=== PATIENT | female | born 1980 | race Two or more races ===

== ENCOUNTER 2017-07-10 12:23 | Emergency (ER) | payer MEDICARE, OTHER ==
[~2017-07-10] VITALS: Ht 165.1 cm; Wt 75.3 kg
[2017-07-10] MEDS ORDERED: KEFLEX500 MG PO (14:44)
== END 2017-07-10 14:58 | disposition home or self-care (01) ==
LOC: ED 12:23
DX: L08.9 Local infection of the skin and subcutaneous tissue, unspecified (principal); I10 Essential (primary) hypertension; F17.200 Nicotine dependence, unspecified, uncomplicated; Z90.710 Acquired absence of both cervix and uterus; Z88.0 Allergy status to penicillin; Z88.8 Allergy status to other drugs, medicaments and biological substances
CPT/HCPCS: 73130; 99283

== ENCOUNTER 2017-12-24 08:55 | Day surgery (SDC) | payer MEDICARE, OTHER ==
[~2017-12-24] VITALS: Ht 165.1 cm; Wt 94.8 kg
[~2017-12-24 08:55] MED LIST: ABILIFY MAINTE400 M1 IM; AMLODIPINE BESYL5 MG PO; GLUCOPHAGE500 MG PO; KEFLEX500 MG PO; PRAZOSIN HCL1 MG PO
--- NOTE | 2017-12-24 11:16 | NUR ---
RN IN PT ROOM TO START IV ANTIBIOTIC. PT IV LINE WAS KINKED PROXIMALLY. IV LINE STRAIGHTENED OUT AND TAPED TO PT GOWN TO KEEP FROM KINKING AGAIN. APPROXIMATELY 3-5 MINUTES LATER, PT USES CALL LIGHT TO STATE THAT HER LEFT ARM WAS "VERY PAINFUL AND HARD TO THE TOUCH." IV FLUIDS SHUT OFF AND IV DC'D DUE TO INFILTRATION. LEFT ARM WRAPPED WITH COBAN AND WARM BLANKET PLACED TO HELP WITH REABSORPTION OF INFILTRATED FLUID. PT TOLEATES PROCEDURE WELL. MILLICENT MG RN IN PT ROOM TO START ANOTHER IV ON RIGHT UPPER ARM WITH USE OF ULTRASOUND.
--- NOTE | 2017-12-24 12:12 | NUR ---
12/24/17 1212 Yareli Rendon 1202 PT ARRIVED TO PACU, RESP EVEN AND UNLABORED ON 6L VIA MASK. ICE APPLIED TO RIGHT HAND AND ELEVATED ON PILLOWS. PT REACTIVE. 1208 PT WOKE UP AND WAS REORIENTED TO PACU. O2 REMOVED, O2 100%. PT DENIES NAUSEA AND PAIN.
--- NOTE | 2017-12-24 12:47 | NUR ---
1235: PATIENT BACK IN DAY SURGERY ROOM FROM PACU. DENIES PAIN. DENIES NAUSEA. C/O RIGHT THUMB BEING NUMB. CAP REFILL TO RIGHT THUMB WNL. RIGHT HAND DRESSING CDI. RIGHT HAND ELEVATED ON PILLOW. ICE PACK TO RIGHT HAND. IV SITE WNL. SCDs ON. GIVEN ICE WATER AND PUDDING. CALL LIGHT WITHIN REACH.
--- NOTE | 2017-12-24 13:27 | NUR ---
PT SITTING UPRIGHT IN BED ON CELLPHONE. PT REQUESTS MORE PUDDING. PT UP TO BR WITH RN ASSIST. PT VOIDS QS WITH NO PROBLEMS. DC CRITERIA MET, PT WOULD LIKE TO REST AT HOME. PT REQUESTS TO PUT OWN CLOTHING ON WHILE DC INSTUCTIONS ARE COMPLETED. CALL LIGHT AT PT LEFT SIDE.
[2017-12-24] MEDS ORDERED: ULTRAM50 MG PO (13:44)
--- NOTE | 2017-12-24 14:07 | NUR ---
[id number]: PT CALLS TAXI FOR RIDE HOME. DC INSTRUCTIONS GIVEN TO PT, PT VERBALIZES AN UNDERSTANDING OF DS INSTRUCTIONS AND HAS NO FURTHER QUESTIONS. PT DC'S VIA WC FROM DS RM 4.
--- NOTE | 2017-12-29 07:19 | OR ---
[facility] [address] [place], [place] [address] Signed DATE OF OPERATION: 12/24/2017 SURGEON: Delroy Izquierdo MD PREOPERATIVE DIAGNOSIS: Mass volar aspect, right thumb. POSTOPERATIVE DIAGNOSIS: Mass volar aspect, right thumb, suspect epithelial inclusion cyst. PROCEDURE: Excision of mass. ANESTHESIA: General. SPECIMENS: The mass was sent as a single specimen. COMPLICATIONS: There were no intraoperative complications. WHAT WAS DONE: The patient was taken to the operating room. After anesthesia was induced and the airway secured, right upper extremity was positioned, prepped and draped in a routine sterile fashion. The hand was exsanguinated with an Esmarch bandage and was less snugly about the wrist. We then made a small transverse incision just at the level of the proximal MCP flexion crease. Skin was divided sharply. Subcutaneous tissue was bluntly spread. The mass which appeared to be pearly white and multilobulated, was easily freed up from the surrounding tissue and was delivered out of the wound. Incision into the mass revealed a white chalky substance exuding from it consistent with an epithelial inclusion cyst. The wound was irrigated and closed in a single layer with 4-0 nylon and a sterile dressing applied. The patient was awakened and taken to the recovery room where she arrived in stable condition. Counts were correct and antibiotic protocols were followed. Delroy Izquierdo MD Electronically Signed By: DELROY IZQUIERDO MD 12/29/17 0719 PATIENT NAME: MILLER BROWER OPERATIVE REPORT DATE OF : 80 REPORT #: [id number] PHYSICIAN: DELROY IZQUIERDO MD PCP: MEME GARRETT REPORT IS CONFIDENTIAL AND NOT TO BE RELEASED WITHOUT AUTHORIZATION [address] [place] [address] Signed B/TRUONGL /[id number] Copies: ~ Electronically Signed By: DELROY IZQUIERDO MD 12/29/17 0719 PATIENT NAME: MILLER BROWER OPERATIVE REPORT DATE OF : 80 REPORT #: [id number] PHYSICIAN: DELROY IZQUIERDO MD PCP: MEME GARRETT REPORT IS CONFIDENTIAL AND NOT TO BE RELEASED WITHOUT AUTHORIZATION
== END 2017-12-24 14:00 | disposition home or self-care (01) ==
LOC: DS 08:55 → OPS 08:55 → DS 11:15 → OPS 11:15
PROVIDERS: Orthopaedic Surgery
PROC: 0JBJ0ZZ Excision of Right Hand Subcutaneous Tissue and Fascia, Open Approach (ICD-10-PCS; principal; 2017-12-24 11:15)
DX: L72.0 Epidermal cyst (principal); I10 Essential (primary) hypertension; F31.9 Bipolar disorder, unspecified; F17.210 Nicotine dependence, cigarettes, uncomplicated; Z79.899 Other long term (current) drug therapy; Z88.0 Allergy status to penicillin
CPT/HCPCS: 00400; 88304; J2250; J2405; J2704; J2765; J3010; J7120

== ENCOUNTER 2018-05-23 11:48 | Emergency (ER) | payer MEDICARE, OTHER ==
[~2018-05-23] VITALS: Ht 165.1 cm; Wt 94.8 kg
--- OUTSIDE RECORDS SUMMARY | ~2018-05-23 | XMS | Encounter Summary ---
Demographics + + + | Address | [address] | | | [place] [address] | + + + | Home Phone | | + + + | Preferred Language | Unknown | + + + | Marital Status | Single | + + + | Catholic Affiliation | NON | + + + | Race | White | + + + | Ethnic Group | Not or | + + + Author + + + | Author | [facility] | + + + | Organization | [facility] | + + + | Address | Unknown | + + + | Phone | Unavailable | + + + Support + + +---------+ + | Name | Relationship | Address | Phone | + + +---------+ + | ZEFERINO LOPEZ | ECON | Unknown | | + + +---------+ + Care Team Providers + +------+ + | Care Wood Car Builder Name | Role | Phone | + +------+ + | No Pcp Per Patient | PCP | Unavailable | + +------+ + Reason for Visit + + + | Reason | Comments | + + + | Surgery Questions | | + + + Encounter Details +--------+ + + + + | Date | Type | Department | Care Team | Description | +--------+ + + + + | 03/23/ | Telephone | [facility] | Tania Mack, | Surgery Questions | | 2018 | | [facility] | [address] | | | | | [address] | [address] | | | | | [address] | [place], [place] | | | | | [address] | [address] | | | | | [place], | [phone] | | | | | [place] [address] | | | | | | [phone] | | | +--------+ + + + + Social History + + + +--------+ + | Tobacco Use | Types | Packs/Day | Years | Date | | | | | Used | | + + + +--------+ + | Current Every Day | Cigarettes | 0.5 | 27 | Started: 1992 | | Smoker | | | | | + + + +--------+ + + +---+---+---+ | Smokeless Tobacco: | | | | | Never Used | | | | + +---+---+---+ + + +---------+ + | Alcohol Use | Drinks/We | oz/Week | Comments | | | ek | | | + + +---------+ + | No | | | | + + +---------+ + + + + | Sex Assigned at | Date Recorded | | | | + + + | Not on file | | + + + as of this encounter Plan of Treatment +--------+---------+ + + + | Date | Type | Specialty | Care Team | Description | +--------+---------+ + + + | 06/28/ | Office | Obstetrics & | Tania Mack, | | | 2018 | Visit | Gynecology | [address] [facility] | | | | | | [address] | | | | | | [place] | | | | | | [address] | | | | | | [phone] | | | | | | | | +--------+---------+ + + + as of this encounter Visit Diagnoses Not on filein this encounter"
--- OUTSIDE RECORDS SUMMARY | ~2018-05-23 | XMS | Encounter Summary ---
Demographics + + + | Address | [address] | | | [place] [address] | + + + | Home Phone | | + + + | Preferred Language | Unknown | + + + | Marital Status | Single | + + + | Jewish Affiliation | NON | + + + | Race | White | + + + | Ethnic Group | Not or | + + + Author + + + | Author | [facility] | + + + | Organization | [facility] | + + + | Address | Unknown | + + + | Phone | Unavailable | + + + Support + + +---------+ + | Name | Relationship | Address | Phone | + + +---------+ + | ZEFERINO LOPEZ | ECON | Unknown | | + + +---------+ + Care Team Providers + +------+ + | Care Mobile Home Mechanic Name | Role | Phone | + +------+ + | No Pcp Per Patient | PCP | Unavailable | + +------+ + Reason for Visit AUTH/CERT +--------+--------+ + + + + | Status | Reason | Specialty | Diagnoses / | Referred By | Referred To | | | | | Procedures | Contact | Contact | +--------+--------+ + + + + | | | | | | | +--------+--------+ + + + + Encounter Details +--------+ + + + + | Date | Type | Department | Care Team | Description | +--------+ + + + + | 03/26/ | Anesthesia | 4N INTRA OP | Haroon Taylor, | | | 2018 | Event | [facility] | [address] [facility] | | | | | Ambulatory Surgery | [facility] | | | | | Admitting Desk | [place], [place] | | | | | Located on the [facility] | [address] | | | | | floor, Room [facility] | [phone] | | | | | [address] [facility] | | | | | | [facility], | | | | | | [place] [address] | | | +--------+ + + + + Anesthesia Record + + + + + | Procedure Name | Responsible | Anesthesia Start | Anesthesia Stop Time | | | Anesthesiologist | Time | | + + + + + | POSTERIOR | Rajesh Rivers MD | 03/26/18 1046 | 03/26/18 1207 | | COLPORRHAPHY (N/A ) | | | | + + + + + +----+---+ + + | Da | T | Event | Comment | | te | i | | | | | m | | | | | e | | | +----+---+ + + | 09 | 0 | Eq Check | Anesthesia machine checked Equipment verified | | /0 | 9 | | | | 7/ | 3 | | | | 20 | 7 | | | | 18 | | | | +----+---+ + + | | 0 | Pt. Check | Prior to anesthesia start, pt. Identified, examined, chart | | | 9 | | reviewed, SYED held, anesthetic plan made or approved by | | | 4 | | attending anesthesiologist. NPO status confirmed as appropriate | | | 6 | | for procedure Preoperative evaluation: unchanged | +----+---+ + + | | 1 | Quick Note | Delayed start due to difficult IV, required IV therapy with | | | 0 | | ultrasound | | | 4 | | | | | 5 | | | +----+---+ + + | | 1 | An Start | | | | 0 | | | | | 4 | | | | | 6 | | | +----+---+ + + | | 1 | An Start | | | | 0 | Data | | | | 4 | | | | | 8 | | | +----+---+ + + | | 1 | Vitals | Monitors applied Vital signs checked Patient ready for anesthesia | | | 0 | Checked | | | | 5 | | | | | 0 | | | +----+---+ + + | | 1 | SGA | | | | 0 | | | | | 5 | | | | | 4 | | | +----+---+ + + | | 1 | Ready | | | | 0 | | | | | 5 | | | | | 6 | | | +----+---+ + + | | 1 | Abx | | | | 1 | Administere | | | | 0 | d | | | | 0 | | | +----+---+ + + | | 1 | Incision | | | | 1 | | | | | 0 | | | | | 7 | | | +----+---+ + + | | 1 | Surgery end | | | | 1 | | | | | 5 | | | | | 6 | | | +----+---+ + + | | 1 | SGA Removed | | | | 2 | | | | | 0 | | | | | 3 | | | +----+---+ + + | | 1 | an stop | | | | 2 | data | | | | 0 | | | | | 3 | | | +----+---+ + + | | 1 | PACU Rpt | | | | 2 | Given | | | | 0 | | | | | 7 | | | +----+---+ + + | | 1 | Anesthesia | | | | 2 | End | | | | 0 | | | | | 7 | | | +----+---+ + + +------+ | Meds | +------+ + +---------+ | Name | Total | + +---------+ | cefOXitin (MEFOXIN) injection 2 g | 2 g | + +---------+ | midazolam | 2 mg | + +---------+ | propofol | 200 mg | + +---------+ | lidocaine 2% | 80 mg | + +---------+ | dexamethasone | 6 mg | + +---------+ | fentaNYL | 150 mcg | + +---------+ | ondansetron | 4 mg | + +---------+ | ketorolac | 30 mg | + +---------+ | lactated Ringers IV | 400 mL | + +---------+ + + | Name | + + | O2 FR Avance (Total Liters) | + + | Air FR Avance (l/min) | + + | Insp Sevo | + + | Et Sevo | + + + + | No blood administrations on file. | + + +--------+ + + + | Type | Details | Placement | Removal | +--------+ + + + | Periph | 03/26/18; 1043; Right; | 03/26/18 1043 by | 03/26/18 1300 by | | eral | Antecubital; 22 g (22g 1.75in); | Alonzo Cohen RN | Keisha Hernandez RN | | IV | Lidocaine; Yes; Positive; | | | | | 03/26/18; 1300 | | | +--------+ + + + in this encounter Social History + + + +--------+ + | Tobacco Use | Types | Packs/Day | Years | Date | | | | | Used | | + + + +--------+ + | Current Every Day | Cigarettes | 0.5 | 27 | Started: 1993 | | Smoker | | | | [...] & | Tania Mack, | | | 2017 | Visit | Gynecology | [address] | | | | | | [address] | | | | | | [place], [place] | | | | | | [address] | | | | | | [phone] | | | | | | | | +--------+---------+ + + + as of this encounter Results NIK SANCHES (03/26/2018 11:05 AM) + + + | Narrative | Performed At | + + + | Haroon Taylor MD 03/26/2018 11:06 AM Procedure Reason for | | | Intubation: For surgical procedure, Location Performed: [place] , | | | Patient was preoxygenated Mask Ventilation Grade 1 - Ventilated by | | | mask ETT SGA Atraumatic Placement: Yes LMA Type: Classic | | | LMA Size: 4LMA Size: 4 LMA positive for Etco2 Breath Sounds | | | Auscultated: Bilateral and equal Narrative Attending physically | | | present Performed by Resident | | + + + in this encounter Visit Diagnoses Not on filein this encounter Administered Medications + +--------+ +------+------+------+ | Medication Order | MAR | Action | Dose | Rate | Site | | | Action | Date | | | | + +--------+ +------+------+------+ | cefOXitin (MEFOXIN) injection 2 | Given | 03/26/2018 | 2 g | | | | g 2 g, intravenous, | | 11:00 | | | | | PREPROCEDURE ONCE, 1 dose, | | PDT | | | | | Starting Thu03/26/18 at 0900, | | | | | | | Until Thu03/26/18 at 1100 | | | | | | + +--------+ +------+------+------+ +---+---+ | | | +---+---+ + +-------+ +------+---+---+ | dexamethasone (DECADRON) | Given | 03/26/2018 | 6 mg | | | | injection INTRAPROCEDURE PRN, | | 10:59 | | | | | Starting Thu03/26/18 at 1059, | | PDT | | | | | Until Thu03/26/18 at 1203 | | | | | | + +-------+ +------+---+---+ +---+---+ | | | +---+---+ + +-------+ +--------+---+---+ | fentaNYL (SUBLIMAZE) injection | Given | 03/26/2018 | 25 mcg | | | | INTRAPROCEDURE PRN, Starting Fri | | 11:42 | | | | | 03/26/18 at 1105, Until 03/26/18 | | PDT | | | | | at 1203 | | | | | | + +-------+ +--------+---+---+ +-------+ +--------+---+---+ | Given | 03/26/2018 | 25 mcg | | | | | 11:54 | | | | | | PDT | | | | +-------+ +--------+---+---+ | Given | 03/26/2018 | 25 mcg | | | | | 11:55 | | | | | | PDT | | | | +-------+ +--------+---+---+ +---+---+ | | | +---+---+ + +-------+ +-------+---+---+ | ketorolac (TORADOL) injection | Given | 03/26/2018 | 30 mg | | | | INTRAPROCEDURE PRN, Starting Fri | | 11:49 | | | | | 03/26/18 at 1149, Until Thu03/26/18 | | PDT | | | | | at 1203 | | | | | | + +-------+ +-------+---+---+ +---+---+ | | | +---+---+ + +---------+ + + +---+ | lactated Ringers IV 10 mL/hr, | New Bag | 03/26/2018 | 10 mL/hr | 10 mL/hr | | | intravenous, PROCEDURE | | 09:32 | | | | | CONTINUOUS, Starting Thu03/26/18 | | PDT | | | | | at 0915, Until Thu03/26/18 at 1309 | | | | | | + +---------+ + + +---+ + + +---+---+---+ | New Bag | 03/26/2018 | | | | | | 10:46 | | | | | | PDT | | | | + + +---+---+---+ | given by anesthesiology | 03/26/2018 | | | | | | 11:57 | | | | | | PDT | | | | + + +---+---+---+ +---+---+ | | | +---+---+ + +-------+ +-------+---+---+ | lidocaine (XYLOCAINE MPF) 2 % | Given | 03/26/2018 | 80 mg | | | | (20 mg/mL) injection | | 10:53 | | | | | INTRAPROCEDURE PRN, Starting Fri | | PDT | | | | | 03/26/18 at 1053, Until 03/26/18 | | | | | | | at 1203 | | | | | | + +-------+ +-------+---+---+ +---+---+ | | | +---+---+ + +-------+ +------+---+---+ | midazolam (PF) (VERSED) | Given | 03/26/2018 | 2 mg | | | | injection INTRAPROCEDURE PRN, | | 10:46 | | | | | Starting 03/26/18 at 1046, | | PDT | | | | | Until 03/26/18 at 1203 | | | | | | + +-------+ +------+---+---+ +---+---+ | | | +---+---+ + +-------+ +------+---+---+ | ondansetron (ZOFRAN) injection | Given | 03/26/2018 | 4 mg | | | | INTRAPROCEDURE PRN, Starting Fri | | 11:44 | | | | | 03/26/18 at 1144, Until 03/26/18 | | PDT | | | | | at 1203 | | | | | | + +-------+ +------+---+---+ +---+---+ | | | +---+---+ + +-------+ +--------+---+---+ | propofol (DIPRIVAN) injection | Given | 03/26/2018 | 200 mg | | | | INTRAPROCEDURE PRN, Starting Fri | | 10:53 | | | | | 03/26/18 at 1053, Until 03/26/18 | | PDT | | | | | at 1203 | | | | | | + +-------+ +--------+---+---+ +---+---+ | | | +---+---+ in this encounter"
--- OUTSIDE RECORDS SUMMARY | ~2018-05-23 | XMS | Encounter Summary ---
Demographics + + + | Address | [address] | | | [place] [address] | + + + | Home Phone | | + + + | Preferred Language | Unknown | + + + | Marital Status | Single | + + + | Tenriism Affiliation | NON | + + + | Race | White | + + + | Ethnic Group | Not or | + + + Author + + + | Author | [facility] | + + + | Organization | [facility] | + + + | Address | Unknown | + + + | Phone | Unavailable | + + + Support + + +---------+ + | Name | Relationship | Address | Phone | + + +---------+ + | ZEFERINO LOPEZ | ECON | Unknown | | + + +---------+ + Care Team Providers + +------+ + | Care Hyperbaric Tech Name | Role | Phone | + +------+ + | No Pcp Per Patient | PCP | Unavailable | + +------+ + Encounter Details +--------+ + + + + | Date | Type | Department | Care Team | Description | +--------+ + + + + | 03/26/ | Procedure | 4N INTRA OP | | | | 2018 | Pass | [facility] | | | | | | Ambulatory Surgery | | | | | | Admitting Desk | | | | | | Located on the 4th | | | | | | floor, Room [facility] | | | | | | [address] [place] [address] [address] | | | | | | [facility], | | | | | | [place] [address] | | | +--------+ + + + [...] [address] | | | | | | [place], [place] | | | | | | [address] | | | | | | [phone] | | | | | | | | +--------+---------+ + + + as of this encounter Visit Diagnoses Not on filein this encounter"
--- OUTSIDE RECORDS SUMMARY | ~2018-05-23 | XMS | Encounter Summary ---
Demographics + + + | Address | [address] | | | [place] [address] | + + + | Home Phone | | + + + | Preferred Language | Unknown | + + + | Marital Status | Single | + + + | Quaker Affiliation | NON | + + + | Race | White | + + + | Ethnic Group | Not or | + + + Author + + + | Author | [facility] | + + + | Organization | [facility] | + + + | Address | Unknown | + + + | Phone | Unavailable | + + + Support + + +---------+ + | Name | Relationship | Address | Phone | + + +---------+ + | ZEFERINO LOPEZ | ECON | Unknown | | + + +---------+ + Care Team Providers + +------+ + | Care Drilling Rig Operator Name | Role | Phone | + +------+ + | No Pcp Per Patient | PCP | Unavailable | + +------+ + Reason for Visit + + + | Reason | Comments | + + + | Postoperative visit | | + + + Encounter Details +--------+---------+ + + + | Date | Type | Department | Care Team | Description | +--------+---------+ + + + | 04/12/ | Office | [facility] | Tania Mack, | Recurrent UTI | | 2018 | Visit | [facility] | MD [address]jah [address] | (Primary Dx) | | | | [address] | [address] | | | | | [address] | [place], [place] | | | | | [address] | [address] | | | | | [address], | [phone] | | | | | [place] [address] | | | | | | [phone] | | | +--------+---------+ + + + Social History + + [...] | | | + +---+---+---+ + + | Comments: down to 1/2 pack daily | + + + + +---------+ + | Alcohol Use [...] + + + as of this encounter Last Filed Vital Signs + + + + | Vital Sign | Reading | Time Taken | + + + + | Blood Pressure | 116/84 | 04/12/2018 10:54 AM PDT | + + + + | Pulse | 91 | 04/12/2018 10:54 AM PDT | + + + + | Temperature | 36.8 C (98.2 F) | 04/12/2018 10:54 AM PDT | + + + + | Respiratory Rate | - | - | + + + + | Oxygen Saturation | 99% | 04/12/2018 10:54 AM PDT | + + + + | Inhaled Oxygen | - | - | | Concentration | | | + + + + | Weight | 98.4 kg (217 lb) | 04/12/2018 10:54 AM PDT | + + + + | Height | - | - | + + + + | Body Mass Index | 35.02 | 04/12/2018 10:54 AM PDT | + + + + in this encounter Instructions Patient Instructions - Betty Vilchis MD - 04/12/2018 11:00 AM PDTThings are healing up well. Keep doing good work! Continue to rest the vaginal area for the next couple months. Take Miralax as needed to av oid constipation.in this encounter Progress Notes Valerie Arriaga MA - 04/12/2018 11:00 AM PDTPOC 10-dip ordered in error on patient's chart . Please disregard results, wrong patient. Betty Vilchis MD - 04/12/2018 11:00 AM PDTUrogynecology Postop Visit 04/12/2018 HPI: Ms. Penny is a 38 y.o. s/p posterior repair on 03/26 returning for follow-up. Continues to feel pressure in the pelvis but denies any feeling of vaginal bulge. Having B Ms every other day without need to strain. Denies vaginal bleeding. Has minimal pain. Did feel a suture pop last week and is worried about this. The past medical history, surgical history, family history, social history, and current med ications updated in EPIC. PHYSICAL EXAM BP 116/84 | Pulse 91 | Temp 36.8 C (98.2 F) | Wt 98.4 kg (217 lb) | SpO2 99% | BMI 35.0 2 kg/(m^2) GENERAL: Healthy Appearing, No acute distress NECK: No thyromegaly RESPIRATORY: Breathing without difficulty CARDIOVASCULAR: No pedal edema SKIN: Warm and dry No vulvar irritation or lesions noted GENERAL PELVIC EXAM EXTERNAL GENITALIA: Normal External Genitalia VAGINA normal diameter normal healing of posterior vaginal incision ASSESSMENT 2 weeks s/p posterior repair, healing appropriately. RECOMMENDATIONS - Discussed activity restrictions- recommended continued pelvic rest - Continue Miralax prn - Return in 8 weeks Pt seen with Dr. Mack, who agrees with the assessment and plan. Elizabeth Vilchis MD Female Pelvic Medicine and Reconstructive Surgery Fellow Tania Mack MD - 04/12/2018 11:00 AM PDTI have seen and examined Ms Penny and agree with Dr Vilchis's note and assessment. Postop doing well.in this encounter Plan of Treatment +--------+---------+ + + + | Date | Type | Specialty | Care Team | Description | +--------+---------+ + + + | 06/28/ | Office | Obstetrics & | Tania Mack, | | | 2017 | Visit | Gynecology | [address] [facility] | | | | | | [facility] | | | | | | [place], [place] | | | | | | [address] | | | | | | [phone] | | | | | | | | +--------+---------+ + + + as of this encounter Procedures + +--------+ + + + | Procedure Name | Priori | Date/Time | Associated Diagnosis | Comments | | | ty | | | | + +--------+ + + + | UA DIPSTICK 10 DIP | Routin | 04/12/2018 | Recurrent UTI | Results for this | | W/O MICRO | e | 11:38 AM | | procedure are in the | | (AUTOMATED), POC | | PDT | | results section. | + +--------+ + + + in this encounter Results UA 10 DIP, POC (04/12/2018 11:38 AM) + + + + + | Component | Value | Ref Range | Performed At | + + + + + | COLOR (UA DIP), POC | Comment: Previously | | [facility] | | | reported as: Zenaida | | [facility] | | | | | CARE TESTS | + + + + + | APPEARANCE (UA DIP), | Comment: Previously | | [facility] | | POC | reported as: Cloudy | | [facility] | | | | | CARE TESTS | + + + + + | LEUKOCYTES (UA DIP), | (A)Comment: Previously | Negative | [facility] | | POC | reported as: Trace | | [facility] | | | | | CARE TESTS | + + + + + | NITRITES (UA DIP), | (A)Comment: Previously | Negative | [facility] | | POC | reported as: Positive | | [facility] POINT OF | | | | | CARE TESTS | + + + + + | UROBILINOGEN (UA | Comment: Previously | 0.2 - 1.0 E.U./dL | [facility] | | DIP), POC | reported as: 0.2 | | [facility] | | | | | CARE TESTS | + + + + + | PROTEIN (UA DIP), | Comment: Previously | Neg - Trace mg/dL | [facility] | | POC | reported as: Trace | | [facility] | | | | | CARE TESTS | + + + + + | PH (UA DIP), POC | Comment: Previously | 5.0 - 8.0 | [facility] | | | reported as: 5.5 | | [facility] POINT OF | | | | | CARE TESTS | + + + + + | BLOOD (UA DIP), POC | Comment: Previously | Negative | [facility] | | | reported as: Negative | | [facility] POINT OF | | | | | CARE TESTS | + + + + + | SPECIFIC GRAVITY (UA | Comment: Previously | 1.005 - 1.030 | [facility] | | DIP), POC | reported as: 1.025 | | [facility]INT OF | | | | | CARE TESTS | + + + + + | KETONES (UA DIP), | Comment: Previously | Negative mg/dL | [facility] | | POC | reported as: Negative | | [facility] OF | | | | | CARE TESTS | + + + + + | BILIRUBIN (UA DIP), | Comment: Previously | Negative | [facility] | | POC | reported as: Negative | | [facility] PO[facility] OF | | | | | CARE TESTS | + + + + + | GLUCOSE (UA DIP), | Comment: Previously | Negative - Trace | [facility] | | POC | reported as: Negative | mg/dL | [facility] OF | | | | | CARE TESTS | + + + + + + + | Specimen | + + | Urine - Urine | + + + + + | Narrative | Performed At | + + + | Resulted to wrong patient per MA. curtis Allen | [facility] | | | [facility], | | | POINT OF CARE | | | TESTS | + + + + + + + + | Performing | Address | City/State/Zipcode | Phone Number | | Organization | | | | + + + + + | [facility] | [address] | [place], [place] | | | [facility] | [facility] | [address] | | | TESTS | | | | + + + + + in this encounter Visit Diagnoses + + | Diagnosis | + + | Recurrent UTI - Primary | + + | Urinary tract infection, site not specified | + +"
--- OUTSIDE RECORDS SUMMARY | ~2018-05-23 | XMS | Encounter Summary ---
Demographics + + + | Address | [address] | | | [place] [address] | + + + | Home Phone | | + + + | Preferred Language | Unknown | + + + | Marital Status | Single | + + + | Sikh Affiliation | NON | + + + [...] Team Providers + +------+ + | Care Codifier Name | Role | Phone | + [...] | Event | Wilmer Grey | [address] [facility] | | | | | Ambulatory Surgery | [facility] | | | | | Admitting Desk | [place], [place] | | | | | Located on the [facility] | [address] | | | | | floor, Room [facility] | [phone] | | | | | [address] [facility] [address] | | | | | | [place], | | | | | | [place] [address] | | | +--------+ + + + [...] [address] | | | | | | [place], [place] | | | | | | [address] | | | | | | [phone] | | | | | | | [...]
--- OUTSIDE RECORDS SUMMARY | ~2018-05-23 | XMS | Clinical Summary ---
Demographics + + + | Address | [address] | | | [place] [address] | + + + | Home Phone | | + + + | Preferred Language | Unknown | + + + | Marital Status | | + + + | Jainism Affiliation | Unknown | + + + | Race | Unknown | + + + | Ethnic Group | Unknown | + + + Author + + + | Author | [email or web address] | + + + | Organization | [facility] | + + + | Address | Unknown | + + + | Phone | Unavailable | + + + Support + + +---------+ + | Name | Relationship | Address | Phone | + + +---------+ + | Alexandra Guerrero | ECON | Unknown | | + + +---------+ + Care Team Providers + +------+ + | Care Batterboard Setter Name | Role | Phone | + +------+ + | Mahesh Vega | PP | | + +------+ + Allergies + + + + + + | Active Allergy | Reactions | Severity | Noted | Comments | | | | | Date | | + + + + + + | Paliperidone | Hives | High | 07/27/19 | | | | | | 18 | | + + + + + + | Penicillins | Other (See Comments) | Medium | 06/09/20 | | | | | | 05 | | + + + + + + Current Medications + + +--------+---------+------+------+-------+ | Prescription | Sig. | Disp. | Refills | Star | End | Statu | | | | | | t | Date | s | | | | | | Date | | | + + +--------+---------+------+------+-------+ | amLODIPine | Take by mouth. | | | 04/2 | 04/2 | Activ | | (NORVASC) 5 MG | | | | 5/20 | 5/20 | e | | tablet | | | | 18 | 19 | | + + +--------+---------+------+------+-------+ | ARIPiprazole ER | Inject into the | | | 04/2 | | Activ | | 400 MG PRSY | muscle. | | | 5/20 | | e | | | | | | 18 | | | + + +--------+---------+------+------+-------+ | nitrofurantoin | Take by mouth. | | | 04/3 | | Activ | | (MACRODANTIN) 100 MG | | | | 0/20 | | e | | capsuleIndications: | | | | 18 | | | | Uncomplicated | | | | | | | | Urinary Tract | | | | | | | | Infection | | | | | | | + + +--------+---------+------+------+-------+ | metFORMIN | Take 500 mg by mouth | | | | | Activ | | (GLUMETZA) 500 MG | 2 (two) times | | | | | e | | (MOD) 24 hr tablet | daily. | | | | | | + + +--------+---------+------+------+-------+ | prazosin | Take 1 mg by mouth. | | | | | Activ | | (MINIPRESS) 1 MG | | | | | | e | | capsule | | | | | | | + + +--------+---------+------+------+-------+ | amLODIPine | Take 10 mg by mouth. | | | 12/18 | 12/18 | Activ | | (NORVASC) 10 MG | | | | 09/08 | 09/08 | e | | tablet | | | | 18 | 19 | | + + +--------+---------+------+------+-------+ | metFORMIN | Take 1,000 mg by | | | | | Activ | | (GLUCOPHAGE) 1000 MG | mouth. | | | | | e | | tablet | | | | | | | + + +--------+---------+------+------+-------+ | nitrofurantoin | Take 100 mg by | | | | | Activ | | (MACRODANTIN) 100 MG | mouth. | | | | | e | | capsuleIndications: | | | | | | | | Uncomplicated | | | | | | | | Urinary Tract | | | | | | | | Infection | | | | | | | + + +--------+---------+------+------+-------+ | clindamycin | Apply qhs to face | 60 g | 11 | 06/1 | | Activ | | (CLINDAGEL) 1 % | | | | 2/20 | | e | | gelIndications: Acne | | | | 18 | | | | vulgaris | | | | | | | + + +--------+---------+------+------+-------+ + + +-------+ +------+------+-------+ | Hospital, Clinic, or | Ordered | Route | Frequency | Star | End | Statu | | Other Facility | Dose | | | t | Date | s | | Administered | | | | Date | | | | Medication | | | | | | | + + +-------+ +------+------+-------+ | | 3 mL | ID | Once | 12/18 | 12/18 | Activ | | lidocaine-EPINEPHrin | | | | / | 10/06 | e | | e 1 %-[id number] | | | | 18 | 38 | | | injection 3 | | | | | | | | mLIndications: | | | | | | | | Neoplasm of | | | | | | | | uncertain behavior | | | | | | | | of skin | | | | | | | + + +-------+ +------+------+-------+ Active Problems + + + | Problem | Noted Date | + + + | Essential hypertension | 12/29/2017 | + + + | Cigarette smoker | 12/29/2017 | + + + | H/O excision of epidermal inclusion cyst | 12/25/2017 | + + + + + | Overview: Overview: | | Right thumb. 12/2017 | + + + + + | Rectocele | 11/18/2017 | + + + | Constipation | 07/30/2017 | + + + | Hx of drug abuse | 07/30/2017 | + + + + + | Overview: Overview: | | Formerly used meth--last 2010 | + + + + + | Schizophrenia (HCC) | 07/27/2017 | + + + | Dyspareunia | 10/10/2005 | + + + Social History + +-------+ +--------+------+ | Tobacco Use | Types | Packs/Day | Years | Date | | | | | Used | | + +-------+ +--------+------+ | Current Every Day | | | | | | Smoker | | | | | + +-------+ +--------+------+ + +---+---+---+ | Smokeless Tobacco: | | | | | Never Used | | | | + +---+---+---+ + + + | Sex Assigned at | Date Recorded | | | | + + + | Not on file | | + + + Last Filed Vital Signs + + + + | Vital Sign | Reading | Time Taken | + + + + | Blood Pressure | - | - | + + + + | Pulse | - | - | + + + + | Temperature | - | - | + + + + | Respiratory Rate | - | - | + + + + | Oxygen Saturation | - | - | + + + + | Inhaled Oxygen | - | - | | Concentration | | | + + + + | Weight | 90.7 kg (200 lb) | 12/02/2017 9:57 AM PDT | + + + + | Height | 167.6 cm (5' 6") | 12/02/2017 9:57 AM PDT | + + + + | Body Mass Index | 32.28 | 12/02/2017 9:57 AM PDT | + + + + Plan of Treatment + + + + + | Health Maintenance | Due Date | Last Done | Comments | + + + + + | Vaccine: | | | | | Dtap/Tdap/Td (1 - | 9 | | | | Tdap) | | | | + + + + + | Vaccine: | | | | | Pneumococcal 19-64 | 9 | | | | (PPSV23 only) Medium | | | | | Risk (1 of 1 - | | | | | PPSV23) | | | | + + + + + | Cervical Cancer | | | | | Screening (Pap) | 0 | | | + + + + + | Vaccine: Influenza | | | | | (#1) | 8 | | | + + + + + Results Not on filefrom Last 3 Months Insurance + +--------+ +------+-------+ + | Payer | Benefi | Subscriber | Type | Phone | Address | | | t Plan | ID | | | | | | / | | | | | | | Group | | | | | + +--------+ +------+-------+ + | MEDICARE | MEDICA | [id number] | | | [address] | | | [place] | | | | [place] [address] | | | IP-OP | | | | | + +--------+ +------+-------+ + | MEDICAID | [place] | [id number] | | | [address] | | | [place] | | | | [place] | | | [place] | | | | [address] | | | [address] | | | | | + +--------+ +------+-------+ + + +--------+ +--------+ + + | Guarantor Name | Accoun | Relation to | Date | Phone | Billing Address | | | t Type | Patient | of | | | | | | | | | | + +--------+ +--------+ + + | MILLER QUACH | Person | Self [birth year] Home: | [address] | | [address] | | 1980 | [phone] [place] [address] | | | [address] | | | [address] | | + +--------+ +--------+ + +
--- OUTSIDE RECORDS SUMMARY | ~2018-05-23 | XMS | Encounter Summary ---
Demographics + + + | Address | [address] | | | [place] [address] | + + + | Home Phone | | + + + | Preferred Language | Unknown | + + + | Marital Status | Single | + + + | Buddhist Affiliation | NON | + + + | Race | White | + + + | Ethnic Group | Not or | + + + Author + + + | Author | [facility] | + + + | Organization | [facility] | + + + | Address | Unknown | + + + | Phone | Unavailable | + + + Support + + +---------+ + | Name | Relationship | Address | Phone | + + +---------+ + | ZEFERINO LOPEZ | ECON | Unknown | | + + +---------+ + Care Team Providers + +------+ + | Care Standpipe Tender Name | Role | Phone | + [...] +--------+--------+ + + + + Encounter Details +--------+---------+ + + + | Date | Type | Department | Care Team | Description | +--------+---------+ + + + | 03/26/ | Surgery | 4N INTRA OP | Tania Mack, | REPAIR OF RECTOCELE | | 2018 | | Wilmer Grey | [address] | | | | | Ambulatory Surgery | [facility] | | | | | Admitting Desk | [place], [place] | | | | | Located on the [facility] | [address] | | | | | floor, Room [facility] | [phone] | | | | | [address] [facility] | | | | | | [facility], | | | | | | [place] [address] | | | +--------+---------+ + + + [...] + + + | Blood Pressure | 121/79 | 03/26/2018 1:30 PM PDT | + + + + | Pulse | 72 | 03/26/2018 1:30 PM PDT | + + + + | Temperature | 36.7 C (98.1 F) | 03/26/2018 1:40 PM PDT | + + + + | Respiratory Rate | 16 | 03/26/2018 1:30 PM PDT | + + + + | Oxygen Saturation | 99% | 03/26/2018 1:40 PM PDT | + + + + | Inhaled Oxygen | - | - | | Concentration | | | + + + + | Weight | 96.2 kg (212 lb) | 03/26/2018 9:07 AM PDT | + + + + | Height | 167.6 cm (5' 6") | 03/26/2018 9:07 AM PDT | + + + + | Body Mass Index | 34.22 | 03/26/2018 9:07 AM PDT | + + + + in this encounter Discharge Instructions Christine Mccollum MD - 03/25/2018Post-surgical Discharge Instructions: Twelve Week Limita tions for Major Reconstructive Surgery You have undergone an extensive reconstructive pelvic surgery and it is now your turn to pl ay a pivotal role in the success of your surgical treatment. We know that it will take appro ximately twelve weeks for the tissues that have been operated on to heal to 80% of their fin al strength. It may take up to six months to achieve 90% strength and full wound remodeling continues for up to two years. Based on this, we recommend that our patients restrict their activities for twelve weeks following surgery. By following these recommendations we would e xpect to get good healing of the surgical site and achieve a good, long-lasting repair of yo ur problem. Your Recovery You can expect to feel better and stronger each day, although you may need pain medicine fo r a week or two. You may get tired easily or have less energy than usual. This may last for several weeks after surgery. Some people may notice a slight depression after surgery. This typically will resolve on its own, but please notify us if it does not. You will probably no carlos that your belly is swollen and puffy. This is common. The swelling will take several we eks to go down. In addition, if you notice excess bleeding, drainage, or redness you should contact the office. If you have any questions at any time, please do not hesitate to contact us. Routine questions and prescription refills can be handled best during regular office ho urs at the office nurse telephone number above. For urgent or emergent issues, one of our ur ogynecologic team is marketing production manager at all times through the page dip unit operator. Assuming that you are recovering fine at home, we would like to see you back in the office at two weeks and t welve weeks after your surgery, or more often if necessary. It is important to avoid lifting while you are recovering so that you can heal. This care sheet gives you specific informati on about what to expect at home and how to care for yourself following surgery. Following th e steps below to get better as quickly as possible. Activity - Rest when you feel tired. Getting enough sleep will help you recover. - Try to walk each day. Start by walking a little more than you did the day before. Bit by bit, increase the amount you walk. Walking boosts blood flow and helps prevent pneumonia and constipation. - You may shower. Pat any incisions dry. Do not take a bath for the first 2 weeks, or until we tell you it is okay. - Nothing in the vagina for approximately 2 to 3 months post-operatively. We will tell you when you can have sex again. Unless we have informed you otherwise, you may remove yourself form the no-lifting and nothing in the vagina restriction a week or two prior to coming in f or your three month visit. - You can drive again when you are no longer taking narcotic pain pills and can feel confid ent in an emergency (sudden stopping for example). Major risk factors for tearing down the surgical repair in the immediate post-operative per iod are constipation and heavy lifting. Any activity that increases the pressure within your abdominal cavity may do this. Therefore, we recommend: - You probably need to take 6-12 weeks off from work. It depends on the type of work you do and how you feel. - Avoid lifting anything that would make you strain. Do not lift anything heavier than 5-8 pounds for twelve weeks. This may include a child, heavy grocery bags and milk containers, a heavy briefcase or backpack, cat litter or dog food bags, or a vacuum barrel loader and cleaner. - Limit your exercise activities such as jogging, aerobics, swimming and biking - Resume Kegel exercises immediately following surgery Diet - You can eat your normal diet. If your stomach is upset, try bland, low-fat foods like carlos enrique in rice, boiled chicken, toast, and yogurt. - Drink plenty of fluids (unless your doctor tells you otherwise). - You may notice that your bowel movements are not regular right after your surgery. This i s common. Try to avoid constipation and straining with bowel movements. Constipation - Take stool softeners as prescribed for twelve weeks post-operatively - It is important to remember that Colace will NOT help move your bowels. It will only help to keep your stool soft. - Drink plenty of fluids, enough so that your urine is light yellow or clear like water. If you have kidney, heart, or liver disease and have to limit fluids, talk to your doctor befo re you increase the amount of fluids your drink. - Include high-fiber foods, such as fruits, vegetables, beans, and whole grains, in your di et each day. - Take a fiber supplement, such as Citrucel or Metamucil, every day. Start with a small dos e and very slowly increase the dose. - If you have not had a bowel movement by 3 days following surgery, please take a dose of e ither Milk of Magnesia or Miralax, available over the counter at your drugstore. We may julio cesar mmend that you take one or both of these laxatives every day starting when you get home. Medicines - Take pain medicines exactly as directed. - Resume all of your prior medication once you are at home, unless otherwise directed by us or your other physician(s). - If you need refills on this medication after you are home, please call the office during regular business hours. - If you are not taking a prescription pain medicine, ask us if you can take an over-the-co unter medicine. - Do not take your pain medication with alcoholic drink. - Do not drive while taking narcotic pain medication - If we prescribed antibiotics, take them as directed. Do not stop taking them just because you feel better. You need to take the full course of antibiotics. - If you think your pain medicine is making you sick to your stomach: 1) Take your medicine after meals (unless we told you not to); 2) Ask us for a different pain medicine. Example of how to alternate medications: 8AM: Oxycodone 1-2 tablets (try to take with food) 12PM: Tylenol (325-600mg) or Ibuprofen (400-600mg) 4PM: Oxycodone 1-2 tablets 8PM: Tylenol or Ibuprofen Cavazos points about pain medication: DO NOT take Tylenol more often than every 4 hours. Odin giraldo Tylenol dose over 24 hours is 4000mg. 4 Nausea Patients often experience nausea after surgery. This is often related to anesthesia and slo w return of bowel function. Sometimes slow sips of fluids/saltine crackers/ small meals rath er than large ones will help relieve nausea. If you cannot keep anything down and feel you n eed anti-nausea medication please call our clinic or provider on-call. Incision Care - If you have strips of tape on the incision leave the tape on for a week or until it falls off. - Wash the area daily with warm, soapy water, and pat it dry. Don t use hydrogen peroxide or alcohol which can slow healing. You may cover the area with a gauze bandage if it weeps or rubs against clothing. - Keep the area clean and dry. - You may shower after surgery, please do not take tub baths or go swimming until we have g iven you permission to resume these activities. When should you call for help? Call 911 anytime you think you may need emergency care. For example: - You passed out (lost consciousness) - You have sudden chest pain and shortness of breath. - You have severe pain in your belly. Call us now or seek immediate medical care if: - You have heavy bright red vaginal bleeding that soaks one or more pad in an hour. - You have very foul-smelling discharge from your vagina - You cannot keep any fluids down. - You have signs of infection, such as: drainage or redness of the incisions. If you are going home with a catheter in your bladder, you will receive special instruction s about how to manage it. We hope that these instructions will be useful to you. Please ask if there are any question s you have that are not covered by these instructions. Your successful surgical procedure an d recovery is a joint effort. We will need your help to see that you recuperate and heal wel l. in this encounter Medications at Time of Discharge + + +---------+---------+ + + | Medication | Sig. | Disp. | Refills | Start | End Date | | | | | | Date | | + + +---------+---------+ + + | acetaminophen | Take 2 tablets by | 50 | 0 | 03/26/20 | | | (TYLENOL) 325 mg | mouth every six | tablet | | 18 | | | oral tablet | hours as needed. | | | | | + + +---------+---------+ + + | amLODIPine 10 mg | Take 10 mg by mouth | | | 12/30/19 | | | oral tablet | once daily at | | | 18 | 9 | | | bedtime. | | | | | + + +---------+---------+ + + | Docusate Sodium | Take 1 tablet by | 180 | 0 | 03/26/20 | | | 100 mg oral tablet | mouth two times | tablet | | 18 | 8 | | | daily. | | | | | + + +---------+---------+ + + | ibuprofen 600 mg | Take 1 tablet by | 30 | 0 | 03/26/20 | | | oral tablet | mouth every six | tablet | | 18 | | | | hours as needed. | | | | | + + +---------+---------+ + + | metFORMIN 1,000 mg | Take 1,000 mg by | | | | | | oral tablet | mouth two times | | | | | | | daily. | | | | | + + +---------+---------+ + + | nicotine 14 mg/24 | Apply 1 patch to | | | | | | hr transdermal patch | skin once daily. | | | | | | 24 hour | | | | | | + + +---------+---------+ + + | nitrofurantoin | Take 1 capsule by | 60 | 3 | 11/17/19 | | | macro crystals | mouth once daily. | capsule | | 18 | | | (MACRODANTIN) 100 mg | Indications: UTI | | | | | | oral | prophylaxis | | | | | | capsuleIndications: | | | | | | | UTI prophylaxis | | | | | | + + +---------+---------+ + + | omeprazole 20 mg | Take 20 mg by mouth | | | | | | oral capsule,delayed | once daily. | | | | | | release(DR/EC) | | | | | | + + +---------+---------+ + + | oxyCODONE | Take 1 tablet by | 10 | 0 | 03/26/20 | | | (immediate release) | mouth every six | tablet | | 18 | | | 5 mg oral tablet | hours as needed. | | | | | + + +---------+---------+ + + | polyethylene | Mix 17 g in liquid | 765 g | 1 | 03/26/20 | | | glycol (MIRALAX) 17 | and drink once | | | 18 | | | gram/dose oral | daily. | | | | | | powder | | | | | | + + +---------+---------+ + + as of this encounter Plan of Treatment +--------+---------+ + + + | Date | Type | Specialty | Care Team | Description | +--------+---------+ + + + | 12/10/ | Office | Obstetrics & | Tania Mack, | | | 2018 | Visit | Gynecology | [address] | | | | | | [address] | | | | | | [place], [place] | | | | | | [address] | | | | | | [phone] | | | | | | | | +--------+---------+ + + + as of this encounter Procedures + +--------+ + + + | Procedure Name | Priori | Date/Time | Associated Diagnosis | Comments | | | ty | | | | + +--------+ + + + | PROCEDURE NOTE | Routin | 03/26/2018 | | Results for this | | | e | 12:27 PM | | procedure are in the | | | | PDT | | results section. | + +--------+ + + + | POSTERIOR | Electi | 03/26/2018 | Rectocele | | | COLPORRHAPHY | ve | 10:00 AM | | | | | Surgic | PDT | | | | | al | | | | + +--------+ + + + | INTRAPROCEDURE | Routin | 03/26/2018 | | Results for this | | IMAGING | e | 9:00 AM | | procedure are in the | | | | PDT | | results section. | + +--------+ + + + | CARDIOLOGY | | 03/26/2018 | | Results for this | | | | 12:00 AM | | procedure are in the | | | | PDT | | results section. | + +--------+ + + + in this encounter Results PROCEDURE NOTE (03/26/2018 12:27 PM) + + + | Narrative | Performed At | + + + | Christine Mccollum MD 03/26/2018 12:27 PM OPERATIVE NOTE | | | Procedure Date: 03/26/2018 Attending Physician: David Mack MD | | | Assistants: Christine Mccollum MD, R3 Preoperative Diagnosis: | | | Posterior vaginal wall prolapse Postoperative Diagnosis: Same | | | Procedure Performed: 1. Posterior colporrhaphy 2. Perineorrhaphy | | | Anesthesia: GETA Estimated Blood Loss: 60 mL Urine Output: | | | 50 mL Fluids: 400 mL crystalloid Findings: Rectocele consistent | | | with examination in clinic Antibiotic Prophylaxis: Cefoxitin IV | | | preoperatively DVT Prophylaxis: SCDs Complications: None | | | apparent Disposition: Stable and extubated to PACU Procedure | | | in detail: The patient was taken to the operating room where team | | | pause was held and proper patient identification and procedure were | | | confirmed. General anesthesia was induced without difficulty. She | | | was then placed in the high dorsal lithotomy position using candy | | | cane stirrups and prepped and draped in the usual sterile fashion. | | | Prior to the beginning of the procedure, the team paused to | | | verify the patient | | | | | | s identity, the procedure to be performed (in accordance with the | | | consent,) and the correct side/site. All relevant images and results | | | were properly labeled and displayed. We addressed antibiotic | | | prophylaxis and fluids for irrigation as applicable to this patient. | | | Any safety precautions were addressed. A hall catheter was | | | placed. The hymenal ring was identified and grasped with two Allis | | | clamps at the 7 and 5 o'clock positions. An allis clamp was applied | | | to the apex of the rectocele. This area was then injected with 0.5% | | | marcaine with epinephrine. A triangular shaped incision was made | | | at the posterior fourchette using the scalpel and the vaginal | | | epithelium was dissected off sharply. This dissection was | | | extended approximately 2 cm proximal with Metzenbaum scissors. | | | Excellent hemostasis was confirmed throughout. Sharp dissection was | | | then carried out laterally to the lateral pelvic wall. Rectovaginal | | | fascia was identified on either side. The rectovaginal fascia was | | | then approximated using 2- 0 Vicryl using 3 box stitches, closing | | | the midline defect. Thereafter, the bulbocavernosus and | | | superficial transverse perinei muscles on either side were brought | | | together with two interrupted 0 Polysorb sutures, recreating the | | | perineal body. Redundant vaginal mucosa was then excised. Vaginal | | | mucosa was closed in a continuous fashion using 3-0 Polysorb. | | | During and after the procedure it was ensured that vagina was 3 | | | fingerbreadth in transverse diameter. All instruments were | | | removed from the patient. She was cleaned, dried, and awakened from | | | anesthesia without difficulty. Sponge, lap, instrument, and needle | | | counts were correct X 2. She was taken to the PACU in stable | | | condition. Dr. Mack was present for this procedure. | | | Christine Mccollum MD Obstetrics and Gynecology, R3 Pager: [phone] | | | | | + + + INTRAPROCEDURE IMAGING (03/26/2018 9:00 AM) + + + | Narrative | Performed At | + + + | See admission or procedure notes for details of any intraprocedure | | | images obtained. | | + + + CARDIOLOGY (03/26/2018) + + + | Narrative | Performed At | + + + | | | + + + in this encounter Visit Diagnoses Not on filein this encounter Admitting Diagnoses + + | Diagnosis | + + | Rectocele | + + Administered Medications + +--------+ + +------+------+ | Medication Order | MAR | Action | Dose | Rate | Site | | | Action | Date | | | | + +--------+ + +------+------+ | acetaminophen (TYLENOL) tablet | Given | 03/26/2018 | 1,000 mg | | | | 1,000 mg 1,000 mg, oral, | | 09:27 | | | | | PREPROCEDURE ONCE, 1 dose, | | PDT | | | | | Starting Thu03/26/18 at 0900, | | | | | | | Until Thu03/26/18 at 0927 | | | | | | + +--------+ + +------+------+ +---+---+ | | | +---+---+ + +-------+ +-------+---+---+ | bupivacaine-EPINEPHrine | Given | 03/26/2018 | 15 mL | | | | (MARCAINE-EPINEPHRINE) 0.25 | | 12:17 | | | | | %-1:200,000 injection | | PDT | | | | | INTRAPROCEDURE PRN, Starting Fri | | | | | | | 03/26/18 at 1217, Until Thu03/26/18 | | | | | | | at 1217 | | | | | | + +-------+ +-------+---+---+ +---+---+ | | | +---+---+ + +-------+ +--------+---+---+ | celecoxib (CELEBREX) capsule | Given | 03/26/2018 | 400 mg | | | | 400 mg 400 mg, oral, | | 09:28 | | | | | PREPROCEDURE ONCE, 1 dose, | | PDT | | | | | Starting Thu03/26/18 at 0900, | | | | | | | Until Thu03/26/18 at 0928 | | | | | | + +-------+ +--------+---+---+ +---+---+ | | | +---+---+ + +---------+ + + +---+ | lactated Ringers IV 10 mL/hr, | New Bag | 03/26/2018 | 10 mL/hr | 10 mL/hr | | | intravenous, PROCEDURE | | 09:32 | | | | | CONTINUOUS, Starting 03/26/18 | | PDT | | | [...] + +---+---+---+ +---+---+ | | | +---+---+ in this encounter
--- OUTSIDE RECORDS SUMMARY | ~2018-05-23 | XMS | Encounter Summary ---
Demographics + + + | Address | [address] | | | [place] [address] | + + + | Home Phone | | + + + | Preferred Language | Unknown | + + + | Marital Status | Single | + + + | Mandaeism Affiliation | NON | + + + | Race | White | + + + | Ethnic Group | Not or | + + + Author + + + | Author | [facility] | + + + | Organization | [facility] | + + + | Address | Unknown | + + + | Phone | Unavailable | + + + Support + + +---------+ + | Name | Relationship | Address | Phone | + + +---------+ + | ZEFERINO LOPEZ | ECON | Unknown | | + + +---------+ + Care Team Providers + +------+ + | Care Store Gift Wrap Associate Name | Role | Phone | + +------+ + | No Pcp Per Patient | PCP | Unavailable | + +------+ + Encounter Details +--------+---------+ + + + | Date | Type | Department | Care Team | Description | +--------+---------+ + + + | 03/15/ | Office | Preoperative | Brooke Hawkins, | Pre-op evaluation | | 2018 | Visit | Medicine Clinic at | ANP [address] | (Primary Dx); | | | | [facility] 4th Floor Day | [address] [place], [place] | Rectocele; | | | | Stay [address] [facility] | [address] | Hypertension, | | | | [address] | [phone] | unspecified type; | | | | Mailcode: UHN65 | | Schizophrenia, | | | | [facility] | | unspecified type | | | | [address] [facility], [place] | | ([facility]); Recurrent | | | | [address] | | UTI; | | | | [phone] | | Gastroesophageal | | | | | | reflux disease, | | | | | | esophagitis presence | | | | | | not specified | +--------+---------+ + + + Anesthesia Record + + + + + | Procedure Name | Responsible | Anesthesia Start | Anesthesia Stop Time | | | Anesthesiologist | Time | | + + + + + | POSTERIOR | Rajesh Rivers MD | 03/26/18 1046 | 03/26/18 1207 | | JUAN (N/A ) | | | | + [...] | | | 9 | | reviewed, PARQ held, anesthetic plan made or approved by [...] + +------+ | Meds | +------+ + + + No medications | on file. | + + + + + | No agents on file. | + + + + | No [...] + + + | Blood Pressure | 133/86 | 03/15/2018 1:01 PM PDT | + + + + | Pulse | 73 | 03/15/2018 1:01 PM PDT | + + + + | Temperature | 36.8 C (98.3 F) | 03/15/2018 1:01 PM PDT | + + + + | Respiratory Rate | 13 | 03/15/2018 1:01 PM PDT | + + + + | Oxygen Saturation | 100% | 03/15/2018 1:01 PM PDT | + + + + | Inhaled Oxygen | - | - | | Concentration | | | + + + + | Weight | 97.5 kg (215 lb) | 03/15/2018 1:01 PM PDT | + + + + | Height | 167.6 cm (5' 6") | 03/15/2018 1:01 PM PDT | + + + + | Body Mass Index | 34.7 | 03/15/2018 1:01 PM PDT | + + + + in this encounter Instructions Patient Instructions - Brooke Hawkins ANP - 03/15/2018 1:10 PM PDT PREOPERATIVE INSTRUCTIONS spares scheduler-Margaret [phone] Empty stomach before surgery On the day BEFORE your surgery, drink plenty of fluids and stay well hydrated. NOTHING to eat or drink after midnight the night before surgery. This includes water, coffee, candy, mints, gum. Medications Instructions On the evening before your surgery, take ALL your usual evening medications On the morning of surgery TAKE the following medications with a sip of water: Omeprazole Chantix On the morning of surgery DO NOT TAKE the following medications: Amlodipine Metformin Miralax Other medications not specifically mentioned are at your discretion as to taking or not taking on the morning of surgery. Unless otherwise directed by your surgeon, do not take any Aspirin, fish oil supplements , vitamin E or non-steroidal anti-inflammatory (NSAIDs i.e. Advil, Aleve, Ibuprofen) or herb al supplements 7 days prior to your surgery. These drugs may interfere with normal blood shirley tting and may cause excessive bleeding and bruising during or after the surgery. If you need a pain medication for general purposes, use Tylenol as directed. OK to take it even on the morning of surgery, if needed. If you are in doubt about any medications that you are taking, please contact our office . Other Important Guidelines ? Do not shave the surgical area ? Do not wear tampons on the day of the procedure. Do not smoke, drink alcohol or use recreational drugs for 24 hours before your surgery Watch for any change in your health condition. Let your surgeon know right away if you do not feel well. ? Do not wear makeup, perfume, lotions, deodorant, powder or hairspray. Do not wear any jewelry to the hospital. Wear loose, comfortable clothing. Leave all your valuables at home. Allow enough travel time so you re not late for your check in for surgery. ? Take a bath or shower and remember to shampoo your hair using your usual hair product bef ore your arrival at the hospital. Please remember to brush your teeth the night before and the morning of your procedure. Smoking You should not smoke for 4 weeks before the procedure and 2 weeks after the procedure. If you are a smoker, please make sure to discuss a plan for managing nicotine withdrawal while in the hospital. Smoking increases the risk of post operative complications because it causes narrowing of b lood vessels, which leads to decreased blood flow to the tissue and therefore poor healing. If you have 3-4 weeks before your planned procedure and wish to quit, we will help you with resources and support. Preventing post op complications while you are in the hospital Use an incentive spirometer or peep breathe to keep your lungs working properly an d to help prevent respiratory complications. It helps you take long, deep breaths. Use it at least once every hour while you are awake. Leg and feet exercises will maintain good circulation and help prevent blood clots in yo ur legs. Sometimes your doctor will order sequential air compression stockings. Compressed air helps the circulation in your legs. Walking and moving will help stimulate normal circulation and deep breathing. After you r surgery, your nurse may ask you to sit, stand or walk. Surgery check-in location: Day Stay Unit - [facility], 4th floor Room 1161 Surgery Check in Time: The Preoperative Medicine Clinic is not in the position to give you accurate information regarding surgical check in time. We refer you back to your surgical office regarding this important information. Going Home Your surgical team will decide when you are medically ready to go home. If you are released to go home on the same day as your procedure/surgery please note the following: You will not be able to drive. You will be required to have a competent person drive you or accompany you by taxi or pu blic transportation on the day of discharge. It is also recommended that you have a competent person assist you and look after you on the first night after you have undergone regional blocks (72 hours for patients going home with regional block pump), deep sedation, and/or general anesthesia. If you have questions or concerns after you go home, call your doctor s office. If it is after office hours, call the [facility] dough mixing machine operator at [phone] and ask them to page him or h er. in this encounter Progress Notes Brooke Hawkins ANP - 03/15/2018 1:10 PM PDTFormatting of this note may be different from the original. PREOPERATIVE CONSULT NOTE Author: TED Carrera Referring Physician: Shereen Mack MD Primary Care Provider: No Pcp Per PATIENT Reason for Consult: Preoperative evaluation and risk assessment Proposed Procedure/Date: REPAIR OF RECTOCELE 03/26/2018 HISTORY OF PRESENT ILLNESS: Bushra Penny is a 38 y.o. female here for preoperative eval uation of medical problems in anticipation of the above procedure. Pt has dx of rectocele. Symptoms related to the diagnosis: Patient s/p TVH, USLS and posterior colporrhaphy in 2004 . It has been noted in the last 5 years return of prolapse with feelings of bulging with BM. She is on a stool softner to help prevent constipation. She describes near constant pressur e type pain in pelvic and vagina. Pertinent medical problems discussed during this visit: Hypertension--controlled with Amlodipine. Admits to not taking for about a month due to have "green stool" and wanting to figure out which medication is causing it. Obesity--taking Metformin twice daily to try and help with weight control. Admits to not taking for about a month due to have "green stool" and wanting to figure out which medicati on is causing it. Schizophrenia--was getting Aripiprazole injections monthly but patient states recently s topped and will try something new in the next couple months. GERD--recently prescribed Omeprazole but hasn't started it yet. Smoking history--started Chantix 8 days ago, today is first day using Nicotine patches a nd not smoking. Recurrent UTI--taking prophylactic Macrodantin. Admits to not taking for about a month d ue to have "green stool" and wanting to figure out which medication is causing it. Perioperative cardiac risks: CAD no CHF no CVA no CKD with creatinine >2 no DM treated with insulin no Functional Capacity: Moderate (4-10 mets) Prior complications of anesthesia: none ROS: HPI: Prior Anesthetic Problems: No Pulmonary: Quit smoking today, been on Chantix for 7 days, started Nicotine patch today. no shortnes s of breath no cough no stridor no wheezing no Recent Respiratory Infection Pt. Has no asthma no COPD No dx of sleep apnea No risk factors for sleep apnea: Cardiovascular: Walks 30 min on treadmill. Denies chest pain/pressure, SOB, dizziness. 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 has: no active bleeding no bleeding disorder No clotting disorders No hemoglobin d isorders no malignancy Infectious Disease: no MRSA no VRE Skin: no open wounds no skin conditions AutoImmune Disorders: No autoimmune disorders Current medications reviewed / updated Current Outpatient Prescriptions Medication Sig amLODIPine 10 mg oral tablet Take 10 mg by mouth once daily at bedtime. metFORMIN 1,000 mg oral tablet Take 1,000 mg by mouth two times daily. nicotine 14 mg/24 hr transdermal patch 24 hour Apply 1 patch to skin once daily. nitrofurantoin macro crystals (MACRODANTIN) 100 mg oral capsule Take 1 capsule by mouth once daily. Indications: UTI prophylaxis omeprazole 20 mg oral capsule,delayed release(DR/EC) Take 20 mg by mouth once daily. polyethylene glycol (MIRALAX) 17 gram oral powder in packet Mix 1 packet and take orall y once daily. varenicline (CHANTIX CONTINUING MONTH BOX) 1 mg oral tablet Take 1 mg by mouth once kerry ly. Using patch as well Level of confidence in medication reconciliation accuracy: High Allergies reviewed / updated Allergies Allergen Reactions Paliperidone Hives Penicillins Past medical history reviewed / updated Past Medical History: Diagnosis Date Constipation GERD (gastroesophageal reflux disease) History of substance abuse meth HTN (hypertension) Recurrent UTI Schizophrenia (HCC) Stress incontinence Tobacco use Past surgery reviewed / updated Past Surgical History Procedure Laterality Date Tubal ligation 2003 Tvh, usls, posterior colporrhaphy 05/14/2005 Cholecystectomy Family history reviewed / updated Family History Problem Relation Hypertension Mother Breast Cancer Maternal Grandmother Breast Cancer Maternal Aunt Social history reviewed / updated Social History Substance Use Topics Smoking status: Current Every Day Smoker Packs/day: 0.50 Years: 27.00 Types: Cigarettes Start date: 1992 Smokeless tobacco: Never Used Alcohol use No PHYSICAL EXAM: Last Vitals: BP 133/86 | Pulse 73 | Temp (Src) 36.8 C (98.3 F) (Oral) | RR 13 | Ht 1.67 6 m (5' 6") | Wt 97.5 kg (215 lb) | SpO2 100% | BMI 34.7 kg/(m^2) Body mass index is 34.7 kg /m. General: Appearance: Healthy, Age appropriate and No distress LOC: Alert HEENT: Normocephalic/Atraumatic, Normal sclerae/conjunctivae, PERRL, EOMI and No thyromegaly Airway: Dentition: dentures-upper Mallampati: 2 Mouth Opening: > 3 cm TM Distance:> 6 cm C-Spine ROM: Normal Neck Anatomy: Normal Neck Circumference: 40 cm. Jaw Protrusion: Normal (lower incisors go above upper incisors) Pulmonary: Respiratory: pulmonary exam normal Breath Sounds: breath sounds normal Cardiovascular: Rhythm: Regular Rate: Normal Cardiovascular comments: No M/G/R; no pedal edema Abdomen: General: Normal Body Habitus: normal Musculoskeletal: Range of Motion: Normal range of motion Musculoskeletal Comments: No obvious deformities n oted. Neuro/Psych: Affect: Normal Cognitive Status: Normal Speech: Normal speech Strength: Normal Muscle Tone: Normal Movement: Normal Gait Station: Normal Cranial Nerves: Normal Sensation: Normal to light touch Comments: No obvious neurologic deficits noted Skin: Color: skin color normal Texture: Normal Turgor: turgor normal Temperature: Warm Other Implanted Devices: Implanted devices: None LABS & DATA REVIEWED/ORDERED: Not needed EKG: Not needed Perioperative risk calculators 2014 ACC/AHA Perioperative Cardiac Risk Stratification (assumes non-emergent, non-cardiac p rocedure) Are active cardiac conditions present? No Calculate the combined surgical and patient-specific risk: using the Chaney perioperative ca rdiac risk calculator, the risk of major adverse cardiac event (MACE) is: less than 1%. No further risk stratification for coronary disease is indicated. Estimated ASA class 2 Other perioperative risk calculators: Not Applicable ASSESSMENT and RECOMMENDATIONS: Perioperative risk assessment: Bushra Penny is a 38 y.o. female with diagnosis of rectocele, scheduled for REPAIR OF RECTOCELE. Based on the clinical information obtained an d reviewed during this visit, the overall assessment is that the patient is having elective major surgery with identified risk factors. The patient is stable / optimized for surgery. Additional testing/optimization is not needed. Medication management recommendations: The patient was advised to continue all usual med ications except as noted in Patient Instructions (After Visit Summary given to pt) Pre-procedure antibiotic recommendation: Per standard protocol. Hypertension--controlled with Amlodipine. Admits to not taking for about a month due to have "green stool" and wanting to figure out which medication is causing it. Obesity--taking Metformin twice daily to try and help with weight control. Admits to not taking for about a month due to have "green stool" and wanting to figure out which medicati on is causing it. Schizophrenia--was getting Aripiprazole injections monthly but patient states recently s topped and will try something new in the next couple months. GERD--recently prescribed Omeprazole but hasn't started it yet. Smoking history--started Chantix 8 days ago, today is first day using Nicotine patches a nd not smoking. Recurrent UTI--taking prophylactic Macrodantin. Admits to not taking for about a month d ue to have "green stool" and wanting to figure out which medication is causing it. Instructed that each medication she is taking are important and she should restart them isabella. Instructed patient to add one medication in at a time then add then next one about 3 d ays later to determine if one of them is causing her "green stool". Instructed patient if sh e were to start her medications the morning of her surgery she should hold Metformin and Aml odipine. Encouraged patient to continue to quit smoking. Thank you for the opportunity to contribute to this patient's care. Brooke HawkinsTED [facility] AT [facility] 4TH FLOOR DAY STAY [address] [facility] [address] I spent time counseling the pt regarding perioperative risk (cardiac/bleeding/ DVT/ respir atory failure/ infection, etc) and methods to mitigate risk. I advised the patient regardin g NPO requirements, hydration before surgery, showering, general body hygiene. All pre-proc edure instructions given to the patient (after-visit summary). All of patient's questions w ere addressed. The patient verbalized understanding of the instructions given. in this enc ounter Plan of Treatment +--------+---------+ + + + | Date | Type | Specialty | Care Team | Description | +--------+---------+ + + + | 06/28/ | Office | Obstetrics & | Tania Mack, | | | 2017 | Visit | Gynecology | [address] | | | | | | [address] | | | | | | [place], [place] | | | | | | [address] | | | | | | [phone] | | | | | | | | +--------+---------+ + + + as of this encounter Visit Diagnoses + + | Diagnosis | + + | Pre-op evaluation - Primary | + + | Preoperative examination, unspecified | + + | Rectocele | + + | Hypertension, unspecified type | + + | Schizophrenia, unspecified type (HCC) | + + | Recurrent UTI | + + | Urinary tract infection, site not specified | + + | Gastroesophageal reflux disease, esophagitis presence not specified | + +
--- OUTSIDE RECORDS SUMMARY | ~2018-05-23 | XMS | Encounter Summary ---
Demographics + + + | Address | [address] | | | [place] [address] | + + + | Home Phone | | + + + | Preferred Language | Unknown | + + + | Marital Status | Single | + + + | Rastafarian Affiliation | NON | + + + | Race | White | + + + | Ethnic Group | Not or | + + + Author + + + | Author | [facility] | + + + | Organization | [facility] | + + + | Address | Unknown | + + + | Phone | Unavailable | + + + Support + + +---------+ + | Name | Relationship | Address | Phone | + + +---------+ + | ZEFERINO LOPEZ | ECON | Unknown | | + + +---------+ + Care Team Providers + +------+ + | Care Hand Thermal Cutter Name | Role | Phone | + [...] | | 2018 | | [facility] | [address] | | | | | [address] | [address] | | | | | [address] | [place], [place] | | | | | [address] | [address] | | | | | [address] [place], | [phone] | | | | | [place] [address] | | | | | | [phone] | | | +--------+ + + + [...] 2018 | Visit | Gynecology | [address] [facility] | | | | | | [address] | | | | | | [place] | | | | | | [address] | | | | | | [phone] | | | | | | | | +--------+---------+ + + + as of this encounter Visit Diagnoses Not on filein this encounter"
--- OUTSIDE RECORDS SUMMARY | ~2018-05-23 | XMS | Encounter Summary ---
Demographics + + + | Address | [address] | | | [place] [address] | + + + | Home Phone | | + + + | Preferred Language | Unknown | + + + | Marital Status | Single | + + + | Bahai Affiliation | NON | + + + | Race | White | + + + | Ethnic Group | Not or | + + + Author + + + | Author | [facility] | + + + | Organization | [facility] | + + + | Address | Unknown | + + + | Phone | Unavailable | + + + Support + + +---------+ + | Name | Relationship | Address | Phone | + + +---------+ + | ZEFERINO LOPEZ | ECON | Unknown | | + + +---------+ + Care Team Providers + +------+ + | Care Supervisor Accounting Clerks Name | Role | Phone | + [...] | | | | | floor, Room [facility] | | | | | | [address] [place] [address] [address] | | | | | | [facility], | | | | | | [place] [address] | | | +--------+ + + + [...] 2017 | Visit | Gynecology | [address] | | | | | | [address] | | | | | | [place], [place] | | | | | | [address] | | | | | | [phone] | | | | | | | | +--------+---------+ + + + as of this encounter Visit Diagnoses Not on filein this encounter"
--- OUTSIDE RECORDS SUMMARY | ~2018-05-23 | XMS | Encounter Summary ---
Demographics + + + | Address | [address] | | | [place] [address] | + + + | Home Phone | | + + + | Preferred Language | Unknown | + + + | Marital Status | Single | + + + | Baptism Affiliation | NON | + + + | Race | White | + + + | Ethnic Group | Not or | + + + Author + + + | Author | [facility] | + + + | Organization | [facility] | + + + | Address | Unknown | + + + | Phone | Unavailable | + + + Support + + +---------+ + | Name | Relationship | Address | Phone | + + +---------+ + | ZEFERINO LOPEZ | ECON | Unknown | | + + +---------+ + Care Team Providers + +------+ + | Care Firewall Engineer Name | Role | Phone | + +------+ + | No Pcp Per Patient | PCP | Unavailable | + +------+ + Reason for Visit + + + | Reason | Comments | + + + | Question | Zohaib Mack MD | + + + Encounter Details +--------+ + + + + | Date | Type | Department | Care Team | Description | +--------+ + + + + | 04/22/ | Telephone | [facility] | Tania Mack, | Gibson (Zohaib | | 2018 | | [facility] | MD [address] | STEPHANIE Mack | | | | [address] | [address] | | | | | [facility] | [place], [place] | | | | | [address] | [address] | | | | | [address] [place], | [phone] | | | | | [place] [address] | | | | | | [phone] | | | +--------+ + + + [...] [address] | | | | | | [place] | | | | | | [address] | | | | | | [phone] | | | | | | | | +--------+---------+ + + + as of this encounter Visit Diagnoses Not on filein this encounter"
--- OUTSIDE RECORDS SUMMARY | ~2018-05-23 | XMS | Encounter Summary ---
Demographics + + + | Address | [address] | | | [place] [address] | + + + | Home Phone | | + + + | Preferred Language | Unknown | + + + | Marital Status | Single | + + + | Yarsanism Affiliation | NON | + + + | Race | White | + + + | Ethnic Group | Not or | + + + Author + + + | Author | [facility] | + + + | Organization | [facility] | + + + | Address | Unknown | + + + | Phone | Unavailable | + + + Support + + +---------+ + | Name | Relationship | Address | Phone | + + +---------+ + | ZEFERINO LOPEZ | ECON | Unknown | | + + +---------+ + Care Team Providers + +------+ + | Care Glass Technician/Installer Name | Role | Phone | + [...] + + + + | 03/26/ | Hospital | [facility] [address] | Tania Mack, | | | 2018 | Encounter | [address] | MD [address] | | | | | [place] | [address] | | | | | [address] | [place], [place] | | | | | (MNP/[facility]) | [address] | | | | | [place] [address] | [phone] | | | | | [phone] | | | +--------+ + + + [...] one of our ur ogynecologic team is java consultant at all times through the page winch operator. Assuming that you are recovering fine [...] or dog food bags, or a vacuum school cleaner. - Limit your exercise activities such [...] see that you recuperate and heal wel lJoseph in this encounter Medications at Time of [...] | 2018 | Visit | Gynecology | [address] [facility] | | | | | | [address] | | | | | | [place], [place] | | | | | | [address] | | | | | | [phone] | | | | | | | [...] Mccollum MD Obstetrics and Gynecology, R3 Pager: [phone] | | | | | + + [...] | Diagnosis | + + | Rectocele - Primary | + + Admitting Diagnoses + + | Diagnosis | [...]
--- OUTSIDE RECORDS SUMMARY | ~2018-05-23 | XMS | Encounter Summary ---
Demographics + + + | Address | [address] | | | [place] [address] | + + + | Home Phone | | + + + | Preferred Language | Unknown | + + + | Marital Status | Single | + + + | Judaism Affiliation | NON | + + + | Race | White | + + + | Ethnic Group | Not or | + + + Author + + + | Author | [facility] | + + + | Organization | [facility] | + + + | Address | Unknown | + + + | Phone | Unavailable | + + + Support + + +---------+ + | Name | Relationship | Address | Phone | + + +---------+ + | ZEFERINO LOPEZ | ECON | Unknown | | + + +---------+ + Care Team Providers + +------+ + | Care Intelligence Applications Name | Role | Phone | + +------+ + | No Pcp Per Patient | PCP | Unavailable | + +------+ + Reason for Visit +--------+ + | Reason | Comments | +--------+ + | Preop | | +--------+ + Intake Referral (Routine) + +--------+ + + + + | Status | Reason | Specialty | Diagnoses / | Referred By | Referred To | | | | | Procedures | Contact | Contact | + +--------+ + + + + | Authorized | | Obstetrics & | Diagnoses | [place], | [facility] | | | | Gynecology | Rectocele | WILSON Chandra | [address] [address] | | | | | Procedures | [address] | [address] | | | | | [place] NEW | Street | [address] | | | | | PATIENT | [place], [place] | [address] | | | | | [place] | [address] | Pavilion | | | | | OFFICE/OUTPT | Phone: | [place], [place] | | | | | | [phone] | [address] | | | | | VISIT,ESTLE | Fax: | Phone: | | | | | VL IV | [phone] | [phone] | | | | | | | Fax: | | | | | | | [phone] | + +--------+ + + + + Encounter Details +--------+---------+ + + + | Date | Type | Department | Care Team | Description | +--------+---------+ + + + | 03/15/ | Office [facility] | Tania Mack, | Rectocele (Primary | | 2018 | Visit | [facility] | [address] | Dx); Schizophrenia, | | | | [address] | unspecified type | | | | [address] | [place], [place] | ([facility]) | | | | Road [address] | [address] | | | | | Pavilion [place], | [phone] | | | | | [place] [address] | | | | | | [phone] | | | +--------+---------+ + + + [...] + + + | Blood Pressure | 100/74 | 03/15/2018 10:16 AM PDT | + + + + | Pulse | 79 | 03/15/2018 10:16 AM PDT | + + + + | Temperature | 37.2 C (98.9 F) | 03/15/2018 10:16 AM PDT | + + + + | Respiratory Rate | - | - | + + + + | Oxygen Saturation | 98% | 03/15/2018 10:16 AM PDT | + + + + | Inhaled Oxygen | - | - | | Concentration | | | + + + + | Weight | 97.3 kg (214 lb 6.4 | 03/15/2018 10:16 AM PDT | | | oz) | | + + + + | Height | - | - | + + + + | Body Mass Index | 34.61 | 03/15/2018 10:16 AM PDT | + + + + in this encounter Progress Notes Betty Vilchis MD - 03/15/2018 10:00 AM PDTUrogynecology Preoperative Visit 03/15/2018 HPI: Ms. Penny is a 38yo with stage 2 symptomatic posterior vaginal wall prolapse. Cont inues to be bothered by the bulge and requires splinting to complete bowel movements despite the use of a consistent bowel regimen. Wondering if she can switch to Linzess postop. Ayo ires surgical correction of prolapse. Has a history of TVH, USLS and posterior repair in 2004. REVIEW OF SYSTEMS GENERAL: Negative ENT: Negative EYES: Negative MUSCULOSKELETAL: Negative GI: Negative : Negative CV: Negative RESP: Negative PSYCH: Negative ENDOCRINE: Negative HEMATOLOGIC: Negative The past medical history, surgical history, family history, social history, and current med ications updated in [facility]. PHYSICAL EXAM BP 100/74 | Pulse 79 | Temp 37.2 C (98.9 F) | Wt 97.3 kg (214 lb 6.4 oz) | SpO2 98% | B VT 34.61 kg/(m^2) GENERAL: Healthy Appearing, No acute distress RESPIRATORY: Breathing without difficulty CARDIOVASCULAR: No pedal edema ABDOMEN: Obese SKIN: Warm and dry NEUROLOGIC GAIT: Normal ORIENTATION: Oriented to time, place, and person AFFECT: Normal GENERAL PELVIC EXAM EXTERNAL GENITALIA: Normal External Genitalia URETHRA: Normal BLADDER: Non tender to palpation VAGINA normal diameter POSTERIOR VAGINAL RUGAE Diminished SUPINE PELVIC ORGAN PROLAPSE QUANTIFICATION (POPQ) TEST Ap: 0 Bp: 0 ICS POPQ Stage of Prolapse 2 Posterior Vaginal Wall Rugae Diminished The above prolapse grid can be interpreted as the following: While lying supine, her genit al hiatus (gh) is cm wide and her perineal body (pb) is cm during valsalva. Her anterior v aginal wall (Ba) descends cm from the introitus (negative numbers inside the introitus, po sitive numbers outside), her posterior vaginal wall (Bp) descends 0 cm from the introitus. H er cervix (c) or vaginal cuff (if posthysterectomy) descends cm from the introitus. ASSESSMENT JAYNAT. DX/TX OPTIONS SYMPTOMS DISCUSSED Introital Bulging Constipation Incomplete evacuation rectum PHYSICAL FINDINGS Posterior Vaginal Wall Prolapse 38yo with recurrent stage 2 posterior vaginal wall prolapse, desiring surgical management. Was counseled that posterior repair is not likely to resolve her defecatory dysfunction but will address the sensation of bulge. Will need to continue the use of bowel regimen postop eratively. RECOMMENDATIONS Surgery Planned: Posterior colporrhaphy [address], the following issues discussed: Bleeding (and need for blood transfusion) Infection Injury to bowels No change in symptoms Change in bowel habits Nerve stimulation/pain Return of prolapse Pain with intercourse - Consent signed today - Surgical packet and postop recovery/restrictions reviewed - PMC appt today Pt seen with Dr. Mack, who agrees with the assessment and plan. Elizabeth Vilchis MD Female Pelvic Medicine and Reconstructive Surgery Fellow Tania Mack MD - 03/15/2018 10:00 AM PDTI have seen and examined Ms Penny and agree with Dr Vilchis's note and assessment. Persistent rectocele and constipation Post repair COntinue miralax She want to restart Linzess because it worked so well. We will discuss that after surgery. Re reviewed op note from 2004. Diamante Arriaga attending - Kira Tobias - fellow.in this encou nter Plan of Treatment +--------+---------+ + + + | Date | Type | Specialty | Care Team | Description | +--------+---------+ + + + | 06/28/ | Office | Obstetrics & | Tania Mack, | | | 2017 | Visit | Gynecology | [address] | | | | | | [address] | | | | | | [place], [place] | | | | | | [address] | | | | | | [phone] | | | | | | | | +--------+---------+ + + + as of this encounter Visit Diagnoses + + | Diagnosis | + + | Rectocele - Primary | + + | Schizophrenia, unspecified type (HCC) | + +"
--- OUTSIDE RECORDS SUMMARY | ~2018-05-23 | XMS | Clinical Summary ---
Demographics + + + | Address | [address] | | | [place] [address] | + + + | Home Phone | | + + + | Preferred Language | Unknown | + + + | Marital Status | | + + + | Anabaptist Affiliation | Unknown | + + + | Race | Unknown | + + + | Ethnic Group | Unknown | + + + Author + + + | Author | [facility] | + + + | Organization | [facility] | + + + | Address | Unknown | + + + | Phone | Unavailable | + + + Support + + +---------+ + | Name | Relationship | Address | Phone | + + +---------+ + | Alexandra Guerrero | ECON | Unknown | | + + +---------+ + Care Team Providers + +------+ + | Care Municipal Firefighter Name | Role | Phone | + [...] 10/06 | e | | e 1 [id number] | | | | 18 | 38 [...] +------+-------+ + | MEDICARE | MEDICA | [id number] | | | [address] | | | RE | | | | [place] [address] | | | IP-OP | | | | | + +--------+ +------+-------+ + | MEDICAID | [place] | [id number] | | | [address] | | | [place] | | | | [place] | | | [place] | | | | [address] | | | TRANSITION MGR RN | | | | | + +--------+ [...] | 1980 | [phone] | [place] [address] | | | teresita | | | [address] | | + +--------+ +--------+ + +
--- OUTSIDE RECORDS SUMMARY | ~2018-05-23 | XMS | Encounter Summary ---
Demographics + + + | Address | [address] | | | [place] [address] | + + + | Home Phone | | + + + | Preferred Language | Unknown | + + + | Marital Status | Single | + + + | Adventism Affiliation | NON | + + + | Race | White | + + + | Ethnic Group | Not or | + + + Author + + + | Author | [facility] | + + + | Organization | [facility] | + + + | Address | Unknown | + + + | Phone | Unavailable | + + + Support + + +---------+ + | Name | Relationship | Address | Phone | + + +---------+ + | ZEFERINO LOPEZ | ECON | Unknown | | + + +---------+ + Care Team Providers + +------+ + | Care Automobile Painter Name | Role | Phone | + [...] [address] | | | | | [place] NEW | Street | [address] | | | | | PATIENT | [place], [place] | [address] | | | | | [place] | [address] | Pavilion | | | | | OFFICE/OUTPT | Phone: | [place], [place] | | | | | | [phone] | [address] | | | | | VISIT,ESTLE | Fax: | Phone: | | | | | VL IV | [phone] | [phone] | | | | | | | Fax: | | | | | | | [phone] | + +--------+ + + + + Encounter Details +--------+---------+ + + + | Date | Type | Department | Care Team | Description | +--------+---------+ + + + | 03/15/ | Office | [facility] | Tania Mack, | Rectocele (Primary | | 2018 | Visit | [facility] | [address] | Dx); Schizophrenia, | | | | [address] | unspecified type | | | | [address] | [place], [place] | ([facility]) | | | | Road [address] | [address] | | | | | Pavilion [place], | [phone] | | | | | [place] [address] | | | | | | [phone] | | | +--------+---------+ + + + [...] history, and current med ications updated in [facility]. PHYSICAL EXAM BP 100/74 | Pulse 79 | Temp 37.2 C (98.9 F) | Wt 97.3 kg (214 lb 6.4 oz) | SpO2 98% | B KS 34.61 kg/(m^2) GENERAL: Healthy Appearing, No acute [...] postop eratively. RECOMMENDATIONS Surgery Planned: Posterior colporrhaphy [address], the following issues discussed: Bleeding [...] Rd | | | | | | [place], [place] | | | | | | [address] | | | | | | [phone] | | | | | | | | +--------+---------+ + + + as of this encounter Visit Diagnoses + + | Diagnosis | + + | Rectocele - Primary | + + | Schizophrenia, unspecified type (HCC) | + +"
--- OUTSIDE RECORDS SUMMARY | ~2018-05-23 | XMS | Clinical Summary ---
Demographics + + + | Address | [address] | | | [place] [address] | + + + | Home Phone [...] Author + + + | Author | [facility] | + + + | Organization | [facility] | + + + | Address | Unknown | + + + | Phone | Unavailable | + + + Support + + +---------+ + | Name | Relationship | Address | Phone | + + +---------+ + | ZEFERINO LOPEZ | ECON | Unknown | | + + +---------+ + Care Team Providers + +------+ + | Care Sample Shoe Inspector And Reworker Name | Role | Phone | + +------+ + | No Pcp Per Patient | PP | Unavailable | + +------+ + Source Comments [facility] is fully live on both [facility] and [facility] Allergies + + + + + + | Active Allergy | Reactions | Severity | Noted | Comments | | | | | Date | | + + + + + + | Paliperidone | Hives | | 07/27/19 | | | | | | 18 | | + + + + + + | Penicillins | | | 06/09/20 | | | | | | 05 | | + + + + + + Current Medications + + +---------+---------+------+------+-------+ | Prescription | Sig. | Disp. | Refills | Star | End | Statu | | | | | | t | Date | s | | | | | | Date | | | + + +---------+---------+------+------+-------+ | nitrofurantoin | Take 1 capsule by | 60 | 3 | 04/3 | | Activ | | macro crystals | mouth once daily. | capsule | | 0/20 | | e | | (MACRODANTIN) 100 mg | Indications: UTI | | | 18 | | | | oral | prophylaxis | | | | | | | capsuleIndications: | | | | | | | | UTI prophylaxis | | | | | | | + + +---------+---------+------+------+-------+ | amLODIPine 10 mg | Take 10 mg by mouth | | | 12/18 | 12/18 | Activ | | oral tablet | once daily at | | | 09/08 | 2 | e | | | bedtime. | | | 18 | 19 | | + + +---------+---------+------+------+-------+ | metFORMIN 1,000 mg | Take 1,000 mg by | | | | | Activ | | oral tablet | mouth two times | | | | | e | | | daily. | | | | | | + + +---------+---------+------+------+-------+ | nicotine 14 mg/24 | Apply 1 patch to | | | | | Activ | | hr transdermal patch | skin once daily. | | | | | e | | 24 hour | | | | | | | + + +---------+---------+------+------+-------+ | omeprazole 20 mg | Take 20 mg by mouth | | | | | Activ | | oral capsule,delayed | once daily. | | | | | e | | release(DR/EC) | | | | | | | + + +---------+---------+------+------+-------+ | oxyCODONE | Take 1 tablet by | 10 | 0 | 09/0 | | Activ | | (immediate release) | mouth every six | tablet | | 7/20 | | e | | 5 mg oral tablet | hours as needed. | | | 18 | | | + + +---------+---------+------+------+-------+ | ibuprofen 600 mg | Take 1 tablet by | 30 | 0 | 09/0 | | Activ | | oral tablet | mouth every six | tablet | | 7/20 | | e | | | hours as needed. | | | 18 | | | + + +---------+---------+------+------+-------+ | Docusate Sodium | Take 1 tablet by | 180 | 0 | 09/0 | 12/0 | Activ | | 100 mg oral tablet | mouth two times | tablet | | 7/20 | 6/20 | e | | | daily. | | | 18 | 18 | | + + +---------+---------+------+------+-------+ | polyethylene | Mix 17 g in liquid | 765 g | 1 | 09/0 | | Activ | | glycol (MIRALAX) 17 | and drink once | | | 7/20 | | e | | gram/dose oral | daily. | | | 18 | | | | powder | | | | | | | + + +---------+---------+------+------+-------+ | acetaminophen | Take 2 tablets by | 50 | 0 | 09/0 | | Activ | | (TYLENOL) 325 mg | mouth every six | tablet | | 02/05 | | e | | oral tablet | hours as needed. | | | 18 | | | + + +---------+---------+------+------+-------+ Active Problems + + + | Problem | Noted Date | + + + | Hypertension | 03/15/2018 | + + + | Schizophrenia (HCC) | 03/15/2018 | + + + | Recurrent UTI | 03/15/2018 | + + + | Gastroesophageal reflux disease | 03/15/2018 | + + + | Rectocele | 11/18/2017 | + + + | Dyspareunia | 10/10/2005 | + + + Encounters +--------+ + + + + | Date | Type | Specialty | Care Team | Description | +--------+ + + + + | 04/22/ | Telephone | | Tania Mack, | Question (Zohaib | | 2017 | | | | MD [place]) | +--------+ + + + + | 04/12/ | Office | | Tania Mack, | Recurrent UTI | | 2018 | Visit | | | (Primary Dx) | +--------+ + + + + | 03/26/ | Hospital | | Tania Mack, | | | 2018 | Encounter | | MD | | +--------+ + + + + | 03/26/ | Procedure | | | | | 2018 | Pass | | | | +--------+ + + + + | 03/26/ | Surgery | | Tania Mack, | REPAIR OF RECTOCELE | | 2017 | | | MD | | +--------+ + + + + | 03/23/ | Telephone | | Tania Mack, | Surgery Questions | | 2017 | | | MD | | +--------+ + + + + | 03/15/ | Office | | Brooke Hawkins, | Pre-op evaluation | | 2018 | Visit | | ANP | (Primary Dx); | | | | | | Rectocele; | | | | | | Hypertension, | | | | | | unspecified type; | | | | | | Schizophrenia, | | | | | | unspecified type | | | | | | ([facility]); Recurrent | | | | | | UTI; | | | | | | Gastroesophageal | | | | | | reflux disease, | | | | | | esophagitis presence | | | | | | not specified | +--------+ + + + + | 03/15/ | Office | | Tania Mack, | Rectocele (Primary | | 2017 | Visit | | MD | Dx); Schizophrenia, | | | | | | unspecified type | | | | | | ([facility]) | +--------+ + + + + | 03/15/ | Anesthesia | | Brooke Hawkins, | | | 2018 | Event | | ANP | | +--------+ + + + + from Last 3 Months Family History + + +------+ + | Medical History | Relation | Name | Comments | + + +------+ + | Breast Cancer | Maternal | | | | | Aunt | | | + + +------+ + | Breast Cancer | Maternal | | | | | Grandmoth | | | | | er | | | + + +------+ + | Hypertension | Mother | | | + + +------+ + + +------+--------+ + | Relation | Name | Status | Comments | + +------+--------+ + | Maternal Aunt | | | | + +------+--------+ + | Maternal Grandmother | | | | + +------+--------+ + | Mother | | | | + +------+--------+ + Social History + + + +--------+ [...] + + + + Plan of Treatment +--------+---------+ + + + | Date | Type | Specialty | Care Team | Description | +--------+---------+ + + + | 06/28/ | Office | | Tania Mack, | | | 2018 | Visit | | [address] | | | | | | [address] | | | | | | [place], [place] | | | | | | [address] | | | | | | [phone] | | | | | | | | +--------+---------+ + + + + + + + + | Health Maintenance | Due Date | Last Done | Comments | + + + + + | Pneumococcal (Adult) | | | | | (1 of 1 - PPSV23) | 9 | | | + + + + + | Influenza (Flu) | | 05/14/2017, 04/22/1996 | | | vaccination (#1) | 8 | | | + + + + + Procedures + +--------+ + + + | [...] | + +--------+ + + + | ANE LMA | Routin | 03/26/2018 | | Results for this | | | e | 11:05 AM | | procedure are in the [...] section. | + +--------+ + + + from Last 3 Months Results UA COREEN FOSTER (04/12/2018 11:38 AM) + + + + + | Component | Value | Ref Range | Performed At | + + + + + | COLOR (UA DIP), POC | Comment: Previously | | [facility] | | | reported as: Zenaida | | [facility] | | | | | CARE TESTS | + + + + + | APPEARANCE (UA DIP), | Comment: Previously | | [facility] | | POC | reported as: Cloudy | | [facility] | | [...] POC | reported as: Positive | | [facility] | | | | | CARE TESTS | + + + + + | UROBILINOGEN (UA | Comment: Previously | 0.2 - 1.0 E.U./dL | [facility] | | DIP), POC | reported as: 0.2 | | [facility], POINT OF | | | | | CARE TESTS | + + + + + | PROTEIN (UA DIP), | Comment: Previously | Neg - Trace mg/dL | [facility] | | POC | reported as: Trace | | [facility] POINT OF | | [...] POC | reported as: 1.025 | | [facility] POINT OF | | | | | CARE TESTS | + + + + + | KETONES (UA DIP), | Comment: Previously | Negative mg/dL | [facility] | | POC | reported as: Negative | | [facility] POINT OF | | | | | CARE TESTS | + + + + + | BILIRUBIN (UA DIP), | Comment: Previously | Negative | [facility] | | POC | reported as: Negative | | [facility] POINT OF | | | | | CARE TESTS | + + + + + | GLUCOSE (UA DIP), | Comment: Previously | Negative - Trace | [facility] | | POC | reported as: Negative | mg/dL | [facility] | | | | | CARE TESTS | + + + + + + + | Specimen | + + | Urine - Urine | + + + + + | Narrative | Performed At | + + + | Resulted to wrong patient per MA. madhuri Allen | [facility] | | | [facility], | | | POINT OF CARE | | | TESTS | + + + + + + + + | Performing | Address | City/State/Zipcode | Phone Number | | Organization | | | | + + + + + | [facility] | [address] | [place], [place] | | | [facility] C[facility] | [address] | [address] | | | TESTS | | | | + + + + + PROCEDURE NOTE (03/26/2018 12:27 PM) + + [...] Mccollum MD Obstetrics and Gynecology, R3 Pager: [phone] | | | | | + + + ANE LMA (03/26/2018 11:05 AM) + + + | [...] by Resident | | + + + INTRAPROCEDURE IMAGING (03/26/2018 9:00 AM) + + + | Narrative | Performed At | + + + | See admission or procedure notes for details of any intraprocedure | | | images obtained. | | + + + CARDIOLOGY (03/26/2018) + + + | Narrative | Performed At | + + + | | | + + + from Last 3 Months Insurance + +--------+ +--------+ + + | Payer | Benefi | Subscriber | Type | Phone | Address | | | t Plan | ID | | | | | | / | | | | | | | Group | | | | | + +--------+ +--------+ + + | SAIF | [facility] | xxxxxxxx | Worker | [phone] | [address] | | | SAIF | | s Comp | [address] | [place] [address] | | | WC | | | | | + +--------+ +--------+ + + | ROTARY SAW OPERATOR MEDICAID | ROTARY SAW OPERATOR | xxxxxxxx | Medica | | | | | [place] | | id | | | | | [place] | | | | | + +--------+ +--------+ + + | MEDICARE | MEDICA | xxxxxxxxxx | Medica | +- | [address] | | | RE A & | | re | [phone] | [place] [address] | | | B | | | | | + +--------+ +--------+ + + | MEDICARE | MEDICA | xxxxxxxxxxx | Medica | +- | [address] | | | RE A & | | re | [phone] | [place] [address] | | | B | | | | | + +--------+ +--------+ + + | ROTARY SAW OPERATOR MEDICAID | ROTARY SAW OPERATOR | xxxxxxxx | Medica | | | | | [place] | | id | | | | | [place] | | | | | + +--------+ +--------+ + + + +--------+ +--------+ + + | Guarantor Name | Accoun | Relation to | Date | Phone | Billing Address | | | t Type | Patient | of | | | | | | | | | | + +--------+ +--------+ + + | BUSHRA PENNY | Person | Self [birth year] | Home: | [address] | | [address] | | 1980 | [phone] | [place] [address] | | | [address]resita | | | [address] | | + +--------+ +--------+ + + | BUSHRA PENNY | Person | Self | [birth year] | Home: | [address] | | | al/Fam | | 1979 | +- | [phone] [phone] | | | teresita | | | [address] | | + +--------+ +--------+ + + | BUSHRA PENNY CALLUM | Third | Self | [birth year] | Home: | [address] | | | [place] Party | | 1979 | +- | [place] [phone] | | | Liabil | | | [address] | | | | ity | | | | | + +--------+ +--------+ + +
--- OUTSIDE RECORDS SUMMARY | ~2018-05-23 | XMS | Encounter Summary ---
Demographics + + + | Address | [address] | | | [place] [address] | + + + | Home Phone | | + + + | Preferred Language | Unknown | + + + | Marital Status | Single | + + + | Buddhism Affiliation | NON | + + + | Race | White | + + + | Ethnic Group | Not or | + + + Author + + + | Author | [facility] | + + + | Organization | [facility] | + + + | Address | Unknown | + + + | Phone | Unavailable | + + + Support + + +---------+ + | Name | Relationship | Address | Phone | + + +---------+ + | ZEFERINO LOPEZ | ECON | Unknown | | + + +---------+ + Care Team Providers + +------+ + | Care Jewelry Appraiser Name | Role | Phone | + [...] 2018 | | [facility] | [address] | | | | | Ambulatory Surgery | [facility] | | | | | Admitting Desk | [place], [place] | | | | | Located on [facility] | [address] | | | | | floor, Room [facility] | [phone] | | | | | [address] [facility] | | | | | | [facility], | | | | | | [place] [address] | | | +--------+---------+ + + + [...] one of our ur ogynecologic team is steward/stewardess second class at all times through the page drosophere operator. Assuming that you are recovering fine [...] or dog food bags, or a vacuum fish cleaner machine tender. - Limit your exercise activities such as [...] Rd | | | | | | [place], [place] | | | | | | [address] | | | | | | [phone] | | | | | | | [...] Mccollum MD Obstetrics and Gynecology, R3 Pager: [phone] | | | | | + + [...]
--- OUTSIDE RECORDS SUMMARY | ~2018-05-23 | XMS | Encounter Summary ---
Demographics + + + | Address | [address] | | | [place] [address] | + + + | Home Phone | | + + + | Preferred Language | Unknown | + + + | Marital Status | Single | + + + | Cheondoism Affiliation | NON | + + + | Race | White | + + + | Ethnic Group | Not or | + + + Author + + + | Author | [facility] | + + + | Organization | [facility] | + + + | Address | Unknown | + + + | Phone | Unavailable | + + + Support + + +---------+ + | Name | Relationship | Address | Phone | + + +---------+ + | ZEFERINO LOPEZ | ECON | Unknown | | + + +---------+ + Care Team Providers + +------+ + | Care Surveillance Analyst Name | Role | Phone | + [...] | 2018 | Visit | [facility] | MD Elijah eHrnandez | (Primary Dx) | | | | [address] | [address] | | | | | [address] | [place], [place] | | | | | [address] | [address] | | | | | [place], | [phone] | | | | | [place] [address] | | | | | | [phone] | | | +--------+---------+ + + + [...] 2017 | Visit | Gynecology | [address] | | | | | | [facility] | | | | | | [place], [place] | | | | | | [address] | | | | | | [phone] | | | | | | | [...] BECKMAN | [address] | [place], [place] | | | [facility] [address] | [facility] | [address] | | | TESTS | | | | + + + + + in this encounter Visit Diagnoses + + | Diagnosis | + + | Recurrent UTI - Primary | + + | Urinary tract infection, site not specified | + +"
--- OUTSIDE RECORDS SUMMARY | ~2018-05-23 | XMS | Clinical Summary ---
Demographics + + + | Address | [address] | | | [place] [address] | + + + | Home Phone | | + + + | Preferred Language | Unknown | + + + | Marital Status | Single | + + + | Uatsdin Affiliation | NON | + + + | Race | White | + + + | Ethnic Group | Not or | + + + Author + + + | Author | [facility] | + + + | Organization | [facility] | + + + | Address | Unknown | + + + | Phone | Unavailable | + + + Support + + +---------+ + | Name | Relationship | Address | Phone | + + +---------+ + | ZEFERINO LOPEZ | ECON | Unknown | | + + +---------+ + Care Team Providers + +------+ + | Care Tire Man Name | Role | Phone | + +------+ + | No Pcp Per Patient | PP | Unavailable | + +------+ + Source Comments [facility] is fully live [facility] and [facility] Allergies + + + + + [...] type | | | | | | ([facility]); Recurrent | | | | | | [...] type | | | | | | ([facility]) | +--------+ + + + + | [...] | | 2018 | Visit | | [address] | | | | | | [address] | | | | | | [place], [place] | | | | | | [address] | | | | | | [phone] | | | | | | | [...] BECKMAN | [address] | [place], [place] | | | [facility] | [address] | [address] | | | TESTS | | | [...] Mccollum MD Obstetrics and Gynecology, R3 Pager: [phone] | | | | | + + [...] | | s Comp | [address] | [place] [address] | | | WC | | | | | + +--------+ +--------+ + + | WARD ATTENDANT MEDICAID | WARD ATTENDANT | xxxxxxxx | Medica | | | | | [place] | | id | | | | | [place] | | | | | + +--------+ +--------+ + + | MEDICARE | MEDICA | xxxxxxxxxx | Medica | +- | [address] | | | RE A & | | re | [phone] | [facility] [facility] [address] | | | B | | | | | + +--------+ +--------+ + + | MEDICARE | MEDICA | xxxxxxxxxxx | Medica | +- | [address] | | | RE A & | | re | [address] | [place] [address] | | | B | | | | | + +--------+ +--------+ + + | WARD ATTENDANT MEDICAID | WARD ATTENDANT | xxxxxxxx | Medica | | | [...] | | al/Fam | | 1980 | [phone] | [place] [address] | | | teresita | | | [address] | | + +--------+ +--------+ + + | BUSHRA PENNY | Person | Self [birth year] | Home: | [address] | | | al/Fam | | 1979 | +- | [place] [address] | | | teresita | | | [address] | | + +--------+ +--------+ + + | BUSHRA PENNY CALLUM | Third | Self | [birth year] | Home: | [address] | | | Democrat | | 1979 | +- | [place] [address] | | | Liabil | | | [address] | | | | ity | | | | | + +--------+ +--------+ + +
--- OUTSIDE RECORDS SUMMARY | ~2018-05-23 | XMS | Encounter Summary ---
Demographics + + + | Address | [address] | | | [place] [address] | + + + | Home Phone | | + + + | Preferred Language | Unknown | + + + | Marital Status | Single | + + + | Church Affiliation | NON | + + + | Race | White | + + + | Ethnic Group | Not or | + + + Author + + + | Author | [facility] | + + + | Organization | [facility] | + + + | Address | Unknown | + + + | Phone | Unavailable | + + + Support + + +---------+ + | Name | Relationship | Address | Phone | + + +---------+ + | ZEFERINO LOPEZ | ECON | Unknown | | + + +---------+ + Care Team Providers + +------+ + | Care Manager Travel Name | Role | Phone | + [...] Gibson (Zohaib | | 2018 | | [facility] | MD Elijah CLIFF[address] David | STEPHANIE Mack | | | | [address] | | | | | [facility] | [place], [place] | | | | | [address] | [address] | | | | | [place], | [phone] | | | | | [place] [address] | | | | | | [phone] | | | +--------+ + + + [...] Rd | | | | | | [place] | | | | | | [address] | | | | | | [phone] | | | | | | | | +--------+---------+ + + + as of this encounter Visit Diagnoses Not on filein this encounter"
--- OUTSIDE RECORDS SUMMARY | ~2018-05-23 | XMS | Encounter Summary ---
Demographics + + + | Address | [address] | | | [place] [address] | + + + | Home Phone | | + + + | Preferred Language | Unknown | + + + | Marital Status | Single | + + + | Muslim Affiliation | NON | + + + | Race | White | + + + | Ethnic Group | Not or | + + + Author + + + | Author | [facility] | + + + | Organization | [facility] | + + + | Address | Unknown | + + + | Phone | Unavailable | + + + Support + + +---------+ + | Name | Relationship | Address | Phone | + + +---------+ + | ZEFERINO LOPEZ | ECON | Unknown | | + + +---------+ + Care Team Providers + +------+ + | Care Learning Consultant Name | Role | Phone | + [...] | [facility] 4th Floor Day | [address] [place], [place] | Rectocele; | | | | Stay [address] [facility] | [address] | Hypertension, | | | | [address] | [phone] | unspecified type; | | | | Mailcode: [id number] | | Schizophrenia, | | | | [facility] | | unspecified type | | | | [address] [facility] [place] | | ([facility]); Recurrent | | | | [address] | | UTI; | | | | [phone] | | Gastroesophageal | | | | [...] - 03/15/2018 1:10 PM PDT PREOPERATIVE INSTRUCTIONS production control scheduler-Margaret [phone] Empty stomach before surgery On the day [...] Surgery check-in location: Day Stay Unit - [facility], 4th floor Room 6112 Surgery Check in Time: The Preoperative Medicine [...] it is after office hours, call the [facility] boom conveyor operator at [phone] and ask them to page him or [...] OF RECTOCELE 03/26/2018 HISTORY OF PRESENT ILLNESS: Bushar Penny is a 38 y.o. female here [...] renal failure no electrolyte abnormalities no dialysis Urology/Nutrition Helper: Urologic Conditions: recurrent UTIs JOURNALISM INTERN conditions: Other: rectocele Endo: no Diabetes: no [...] contribute to this patient's care. [facility] 4TH FLOOR DAY STAY [address] [facility] [address] I spent time counseling the [...] [address] | | | | | | [place], [place] | | | | | | [address] | | | | | | [phone] | | | | | | | [...]
--- OUTSIDE RECORDS SUMMARY | ~2018-05-23 | XMS | Encounter Summary ---
Demographics + + + | Address | [address] | | | [place] [address] | + + + | Home Phone [...] Author + + + | Author | [facility] | + + + | Organization | [facility] | + + + | Address | Unknown | + + + | Phone | Unavailable | + + + Support + + +---------+ + | Name | Relationship | Address | Phone | + + +---------+ + | ZEFERINO LOPEZ | ECON | Unknown | | + + +---------+ + Care Team Providers + +------+ + | Care Back Shoe Operator Name | Role | Phone | [...] [address] | | | | | [address] | [address] | | | | | [place] | [place], [place] | | | | | (MNP/[facility]) | [address] | | | | | [place] [address] | [phone] | | | | | [phone] | | | +--------+ + + + [...] one of our ur ogynecologic team is certified medical transcriptionist at all times through the page binder folder operator. Assuming that you are recovering fine [...] or dog food bags, or a vacuum glass mould cleaner. - Limit your exercise activities such [...] | 2018 | Visit | Gynecology | [address] [facility] | | | | | | [address] | | | | | | [place], [place] | | | | | | [address] | | | | | | [phone] | | | | | | | [...] Mccollum MD Obstetrics and Gynecology, R3 Pager: [phone] | | | | | + + [...]
[~2018-05-23 11:48] MED LIST changes: +ULTRAM50 MG PO
[2018-05-23] MEDS ORDERED: LATUDA120 MG PO (12:01)
[2018-05-23] MEDS ORDERED: OXYCODONE HCL5 M1 PO (12:02)
== END 2018-05-23 13:24 | disposition home or self-care (01) ==
LOC: ED 11:48
DX: S93.402A Sprain of unspecified ligament of left ankle, initial encounter (principal); X50.9XXA Other and unspecified overexertion or strenuous movements or postures, initial encounter; I10 Essential (primary) hypertension; F17.200 Nicotine dependence, unspecified, uncomplicated; Z88.0 Allergy status to penicillin; Z88.8 Allergy status to other drugs, medicaments and biological substances; Z79.899 Other long term (current) drug therapy
CPT/HCPCS: 73610; 99283

== ENCOUNTER 2022-06-03 09:28 | Emergency (ER) | payer MEDICARE, OTHER ==
[~2022-06-03] VITALS: Ht 165.1 cm; Wt 104.3 kg
[~2022-06-03 09:28] MED LIST changes: +LATUDA120 MG PO; +OXYCODONE HCL5 M1 PO
[2022-06-03] MEDS ORDERED: IBU600 MG PO (12:02)
[2022-06-03] MEDS ORDERED: ULTRAM50 MG PO (12:02)
== END 2022-06-03 12:35 | disposition home or self-care (01) ==
LOC: ED 09:28
DX: S93.601A Unspecified sprain of right foot, initial encounter (principal); I10 Essential (primary) hypertension; W18.42XA Slipping, tripping and stumbling without falling due to stepping into hole or opening, initial encounter; F17.200 Nicotine dependence, unspecified, uncomplicated; Z88.0 Allergy status to penicillin; Z88.8 Allergy status to other drugs, medicaments and biological substances; Z79.899 Other long term (current) drug therapy; Z79.84 Long term (current) use of oral hypoglycemic drugs
CPT/HCPCS: 73630; 99283-25; A9270